=== PATIENT | male | born 1980 | race Caucasian/White ===

== ENCOUNTER 2017-02-17 17:42 | Inpatient (IN) | payer OTHER ==
[2017-02-17 20:22] VITALS: BMI 25.2
--- NOTE | 2017-02-17 22:49 | HP ---
COWS - Scale Resting Pulse: 1= [place] 81-100 Sweatin=Flushed/Facial Moisture Restless Observation: 5= Unable to Sit Still Pupil Size: 1= Pupils >than Normal Bone or Joint Aches: 4=Acute Joint/Muscle Pain Runny Nose/ Eye Tearin= Runny Nose/Eyes GI Upset > 30mins: 2= Nausea/Diarrhea Tremor Observation: 4= Gross Tremor/Twitching Yawning Observation: 1= 1-2x During Session Anxiety or Irritability: 4=Extreme Anxiety Goose Flesh Skin: 0=Smooth Skin COWS Score: 26 CIWA Score - CIWA Score Nausea/Vomitin Muscle Tremors: 4-Moderate,w/Arms Extend Anxiety: 4-Mod. Anxious/Guarded Agitation: 5 Paroxysmal Sweats: 3 Orientation: 0-Oriented Tacttile Disturbances: 3-Moderate Itch/Numb/Burn Auditory Disturbances: 0-None Visual Disturbances: 0-None Headache: 3-Moderate CIWA-Ar Total Score: 25 Admission ROS BHS - HPI Chief Complaint: COMPLAINING OF WITHDRAWAL SX'S SEEKING DETOX TXMENT Allergies/Adverse Reactions: Allergies Allergy/AdvReac Type Severity Reaction Status Date / Time No Known Allergies Allergy Verified 02/17/17 22:25 History of Present Illness: 36 Y.O. MALE WITH LONG HX/O OPIOID, BENZO AND ALCOHOL DEPENDENCE HERE FOR DETOX SERVICES. REFERRED BY SUBSTANCE ABUSE COUNSELOR. DENIES ANY SIGNIFICANT PERIOD OF CLEAN TIME. Exam Limitations: No Limitations - Ebola screening Have you traveled outside of the country in the last 21 days: No Have you had contact with anyone from an Ebola affected area: No Have you been sick,other than usual withdrawal symptoms: No Do you have a fever: No - Review of Systems Constitutional: Chills, Loss of Appetite, Night Sweats EENT: reports: Nose Congestion, Dental Problems (MISSING TEETH), Other (RUNNY NOSE/ WATERY EYES) Respiratory: reports: No Symptoms reported Cardiac: reports: No Symptoms Reported GI: reports: Nausea, Poor Appetite, Poor Fluid Intake : reports: No Symptoms Reported Musculoskeletal: reports: Back Pain, Joint Pain Integumentary: reports: Flushing Neuro: reports: Seizure (HX/O LAST 7 YEARS AGO) Endocrine: reports: No Symptoms Reported Hematology: reports: No Symptoms Reported Psychiatric: reports: Anxious, Depressed Other Systems: Reviewed and Negative Patient History - Patient Medical History Hx Anemia: No Hx Asthma: No Hx Chronic Obstructive Pulmonary Disease (COPD): No Hx Cancer: No Hx Cardiac Disorders: No Hx Congestive Heart Failure: No Hx Hypertension: Yes Hx Hypercholesterolemia: No Hx Pacemaker: No HX Cerebrovascular Accident: No Hx Seizures: Yes (NO MEDS) Hx Dementia: No Hx Diabetes: No Hx Gastrointestinal Disorders: No Hx Liver Disease: Yes (hep c +) Hx Genitourinary Disorders: No Hx Sexually Transmitted Disorders: No Hx Renal Disease (ESRD): No Hx Thyroid Disease: No Hx Human Immunodeficiency Virus (HIV): Yes Hx Hepatitis C: Yes (NO TXMENT) Hx Depression: Yes Hx Suicide Attempt: No Hx Bipolar Disorder: Yes Hx Schizophrenia: No Other Medical History: DENIES - Patient Surgical History Past Surgical History: No Hx Neurologic Surgery: No Hx Cataract Extraction: No Hx Cardiac Surgery: No Hx Lung Surgery: No Hx Breast Surgery: No Hx Breast Biopsy: No Hx Abdominal Surgery: Yes (08/03/11-s/p cholecystectomy) Hx Appendectomy: No Hx Cholecystectomy: No Hx Genitourinary Surgery: Yes (kidney stone removal) Hx Section: No Hx Orthopedic Surgery: No Hx Hysterectomy: No Anesthesia Reaction: No - PPD History Previous Implant?: Yes Documented Results: Negative w/proof Implanted On Prior R Admission?: Yes Date: 04/19/11 Results: Neg PPD to be Administered?: Yes - Smoking Cessation Smoking history: Current every day smoker Have you smoked in the past 12 months: Yes Aproximately how many cigarettes per day: 2 Cigars Per Day: 0 Hx Chewing Tobacco Use: No Initiated information on smoking cessation: Yes 'Breaking Loose' booklet given: 02/17/17 - Substance & Tx. History Hx Alcohol Use: Yes Hx Substance Use: Yes Substance Use Type: Alcohol, Heroin, Opiates (STREET MTD), Tranquilizers (XANAX) Hx Substance Use Treatment: Yes ([facility]) - Substances Abused Alcohol Route: Oral Frequency: Daily Amount used: Beer - 30 oz, Vodka 2 pint Age of first use: 16 Date of Last Use: 02/17/17 Heroin Route: Injection Frequency: Daily Amount used: 15 bags Age of first use: 16 Date of Last Use: 02/17/17 Cocaine Route: Injection Frequency: Daily Amount used: 4 bags Age of first use: 16 Date of Last Use: 02/16/17 XANAX Route: Oral Frequency: 1-2 times per week Amount used: 4MG Age of first use: 17 Date of Last Use: 02/13/[address] MTD Route: Oral Frequency: 1-3 times last 30 days Amount used: 10MG Age of first use: 29 Date of Last Use: 02/12/17 Family Disease History - Family Disease History Family Disease History: Other: Mother (HX/O SEIZURE, DM) Admission Physical Exam [facility] - Vital Signs Vital Signs: Vital Signs - 24 hr 02/17/17 20:18 Temperature 98.9 F Pulse Rate 88 Respiratory 18 Rate Blood Pressure 130/79 - Physical General Appearance: Yes: Appropriately Dressed, Moderate Distress, Alcohol on Breath, Tremorous, Anxious HEENTM: Yes: EOMI, Normocephalic, IVAN (DIALATED PUPILS), Pharynx Normal, Other (MISSING TEETH) Respiratory: Yes: Chest Non-Tender, Lungs Clear, Normal Breath Sounds, No Respiratory Distress, No Accessory Muscle Use Neck: Yes: No masses,lesions,Nodules, Supple, Trachea in good position Breast: Yes: Breast Exam Deferred Cardiology: Yes: Regular Rhythm, Regular Rate, S1, S2 Abdominal: Yes: Normal Bowel Sounds, Non Tender, Soft Genitourinary: Yes: Within Normal Limits Back: Yes: Normal Inspection Musculoskeletal: Yes: full range of Motion, Gait Steady Extremities: Yes: Normal Capillary Refill, Normal Range of Motion, Non-Tender, Tremors Neurological: Yes: Fully Oriented, Alert, Motor Strength 5/5 Integumentary: Yes: Warm, Moist, Track [place] (RECENT NEEDLE QUINTANILLA NOTED), Other (FLUSHED FACE) Lymphatic: Yes: Within Normal Limits - Diagnostic (1) Alcohol dependence with uncomplicated withdrawal Current Visit: Yes Status: Chronic (2) Opioid dependence with withdrawal Current Visit: Yes Status: Chronic (3) Sedative, hypnotic or anxiolytic dependence with withdrawal, uncomplicated Current Visit: Yes Status: Chronic (4) Nicotine dependence Current Visit: Yes Status: Chronic Qualifiers: Nicotine product type: cigarettes Substance use status: uncomplicated Qualified Code(s): F17.210 - Nicotine dependence, cigarettes, uncomplicated (5) Hx of seizure disorder Current Visit: No Status: Suspected (6) HTN (hypertension) Current Visit: Yes Status: Chronic Qualifiers: Hypertension type: unspecified Qualified Code(s): I10 - Essential (primary ) hypertension (7) Hepatitis C Current Visit: Yes Status: Chronic Qualifiers: Viral hepatitis chronicity: unspecified Cleared for Admission [facility] - Detox or Rehab [facility] Level of Care: Medically Managed Detox Regimen/Protocol: Methadone/Librium Claeared for Rehab Admission: No (DETOX) [facility] Breath Alcohol Content Breath Alcohol Content: 0.060 Urine Drug Screen - Results Drug Screen Negative: No Urine Drug Screen Results: BZO-Benzodiazepines, MTD-Methadone
[2017-02-17] MEDS ORDERED: LOPERAMIDE HCL 2 MG CAPSULE PO PRN (23:04)
[2017-02-17] MEDS ORDERED: NICOTINE POLACRILEX 2 MG GUM BC PRN (23:04)
[2017-02-17] MEDS ORDERED: guaiFENesin/D-METHORPHAN HB 10 ML UNIT-DOSE CUPS PO PRN (23:04)
[2017-02-17] MEDS ORDERED: MAGNESIUM CITRATE 300 ML BOTTLE PO PRN (23:04)
[2017-02-17] MEDS ORDERED: MAGNESIUM HYDROX 2400MG/30ML ORAL SUSPENSION 30 ML CUP PO PRN (23:04)
[2017-02-17] MEDS ORDERED: MENTHOL/PHENOL 1 EACH UD MM PRN (23:04)
[2017-02-17] MEDS ORDERED: P-EPHED 60MG/TRIPROLIDI 2.5MG TABLET PO PRN (23:04)
[2017-02-17] MEDS ORDERED: MAG HYDROX/AL HYDROX/SIMETH 30 ML UNIT-DOSE CUP PO PRN (23:04)
[2017-02-17] MEDS ORDERED: IBUPROFEN 400 MG TABLET (FP) PO PRN (23:04)
[2017-02-18] MEDS ORDERED: chlordiazePOXIDE HCL 25 MG CAPSULE PO PRN (00:01)
[2017-02-18] MEDS ORDERED: METHADONE HCL 10 MG TABLET (FOR DETOX USE ONLY) PO ONE ×4 (00:01→22:00)
[2017-02-18] MEDS ORDERED: chlordiazePOXIDE HCL 25 MG CAPSULE PO ONE (00:01)
[2017-02-18] MEDS: chlordiazePOXIDE HCL 25 MG CAPSULE PO SCH ×4 (05:46→22:09)
[2017-02-18 10:09] LABS: HEMATOCRIT 43.3 % (35.4-49); HEMOGLOBIN 14.2 GM/dL (11.7-16.9); MCHC 32.9 g/dl (32.0-35.9); MEAN CELL VOLUME 94.2 fl (80-96); MEAN PLT VOLUME 9.6 fl (7.5-11.1); PLATELET COUNT 208 K/MM3 (134-434); RDW 12.9 % (11.9-15.9); WHITE BLOOD COUNT 5.8 K/mm3 (4.0-10.0)
[2017-02-18 10:12] LABS: CHLORIDE 102 mmol/L (98-107); POTASSIUM 3.7 mmol/L (3.5-5.1); SODIUM 141 mmol/L (136-145)
--- NOTE | 2017-02-18 10:36 | PN ---
[facility] CIWA - CIWA Score Nausea/Vomitin-No Nausea/No Vomiting Muscle Tremors: 4-Moderate,w/Arms Extend Anxiety: 3 Agitation: 3 Paroxysmal Sweats: 3 Orientation: 0-Oriented Tacttile Disturbances: 0-None Auditory Disturbances: 0-None Visual Disturbances: 0-None Headache: 0-None Present CIWA-Ar Total Score: 13 BHS COWS - Scale Resting Pulse: 0= [place] 80 or Below Sweatin=Flushed/Facial Moisture Restless Observation: 1= Difficult to Sit Still Pupil Size: 0= Normal to Room Light Bone or Joint Aches: 2= Severe Diffuse Aches Runny Nose/ Eye Tearin= Runny Nose/Eyes GI Upset > 30mins: 2= Nausea/Diarrhea Tremor Observation of Outstretched Hands: 2= Slight Tremor Visible Yawning Observation: 2= >3x During Session Anxiety or Irritability: 2=Irritable/Anxious Goose Flesh Skin: 3=Piloerection COWS Score: 18 S Progress Note (SOAP) Subjective: agitation anxiety sweats shakes interrupted sleep body aches Objective: 02/18/17 10:34 Vital Signs Temperature 97.3 F L 02/18/17 09:48 Pulse Rate 79 02/18/17 09:48 Respiratory Rate 18 02/18/17 09:48 Blood Pressure 157/92 02/18/17 09:48 O2 Sat by Pulse Oximetry (%) Laboratory Tests 02/18/17 02/18/17 07:00 07:00 WBC 5.8 RBC 4.60 Hgb 14.2 Hct 43.3 MCV 94.2 MCH 31.0 MCHC 32.9 RDW 12.9 Plt Count 208 MPV 9.6 Sodium 141 Potassium 3.7 Chloride 102 labs pending aaox3 ambulating no acute distress methadone 20mg x one ordered for today instead of breaking the dose as previously ordered Assessment: 02/18/17 10:35 withdrawal sx Plan: continue detox increase fluids labs pending
[2017-02-18] MEDS: PRENATAL VITAMINS W/ FOLIC ACID TABLET (FP) PO SCH (10:49)
[2017-02-18] MEDS: NICOTINE 14 MG/24 HOURS TOPICAL PATCH TD SCH (10:52)
[2017-02-18 10:57] LABS: ALBUMIN 3.8 g/dl (3.4-5.0); ALK PHOS 109 U/L (45-117); ANION GAP 7 (8-16); BILIRUBIN,TOTAL 0.5 mg/dL (0.2-1.0); BLOOD UREA NITROGEN 17 mg/dL (7-18); CALCIUM 9.1 mg/dL (8.5-10.1); CO2 32 mmol/L (21-32); CREATININE 0.8 mg/dL (0.7-1.3); GLUCOSE,RANDOM 93 mg/dL (74-106); SGOT/AST 89 U/L (15-37); SGPT/ALT 131 U/L (12-78)
[2017-02-18] MEDS ORDERED: diphenhydrAMINE HCL 50 MG CAPSULE PO PRN (10:57)
[2017-02-18] MEDS ORDERED: FLU VACCINE QUAD 60 MCG/0.5 ML (MDV 17-18) IM ONE (12:00)
[2017-02-18] MEDS ORDERED: PNEUMOC 13-VAL CONJ-DIP CRM/PF 0.5 ML DISP.SYRIN IM ONE (12:00)
--- NOTE | 2017-02-18 12:34 | CONSULT ---
[facility] Psychiatric Consult - Data Date of interview: 02/18/17 Admission source: [facility] Identifying data: Pt. is a 36 year old male, single, unemployed, and currently homeless. This is patient's second admission to [facility]. Pt. admitted to for detox from alcohol, heroin, cocaine and xanax dependence. Substance Abuse History: Smoking Cessation. Smoking history: Current every day smoker. Have you smoked in the past 12 months: Yes. Aproximately how many cigarettes per day: 2. Cigars Per Day: 0. Hx Chewing Tobacco Use: No. Initiated information on smoking cessation: Yes. 'Breaking Loose' booklet given : 02/17/17. - Substance & Tx. History. Hx Alcohol Use: Yes. Hx Substance Use : Yes. Substance Use Type: Alcohol, Heroin, Opiates (STREET MTD), Tranquilizers (XANAX). Hx Substance Use Treatment: Yes ([facility]). Alcohol: Route: Oral Frequency: Daily. Amount used: Beer - 30 oz, Vodka 2 pint Age of first use: 16. Date of Last Use: 02/17/17. Heroin: Route: Injection Frequency: Daily. Amount used: 15 bags Age of first use: 16. Date of Last Use : 02/17/17. Cocaine: Route: Injection Frequency: Daily. Amount used: 4 bags Age of first use: 16. Date of Last Use: 02/16/17. XANAX: Route: Oral Frequency: 1-2 times per week. Amount used: 4MG Age of first use: 17. Date of Last Use: 02/13/17. STREET MTD: Route: Oral Frequency: 1-3 times last 30 days. Amount used: 10MG Age of first use: 29. Date of Last Use: 02/12/17 Medical History: Cholecystectomy, HEP C, Seizures, HIV and kidney stone removal. Psychiatric History: Pt. reports a history of depression and anxiety. Pt. denies h/o psychiatric hospitalization and suicide attempts. Physical/Sexual Abuse/Trauma History: Denies. Mental Status Exam - Mental Status Exam Alert and Oriented to: Time, Place, Person Cognitive Function: Fair Patient Appearance: Unkempt Mood: Depressed, Anxious Affect: Mood Congruent Patient Behavior: Cooperative Speech Pattern: Clear Voice Loudness: Normal Thought Process: Intact Thought Disorder: Not Present Hallucinations: Denies Suicidal Ideation: Denies Homicidal Ideation: Denies Insight/Judgement: Poor Sleep: Poorly Appetite: Fair Muscle strength/Tone: Normal Gait/Station: Normal Psychiatric Findings - Problem List (Velva 1, 2,3) (1) Alcohol dependence with uncomplicated withdrawal Current Visit: Yes Status: Chronic (2) Opioid dependence with withdrawal Current Visit: Yes Status: Chronic (3) Sedative, hypnotic or anxiolytic dependence with withdrawal, uncomplicated Current Visit: Yes Status: Chronic (4) Alcohol dependence Current Visit: Yes Status: Acute (5) Benzodiazepine dependence Current Visit: Yes Status: Acute (6) Nicotine dependence Current Visit: Yes Status: Chronic Qualifiers: Nicotine product type: cigarettes Substance use status: uncomplicated Qualified Code(s): F17.210 - Nicotine dependence, cigarettes, uncomplicated (7) Substance induced mood disorder Current Visit: No Status: Suspected - Initial Treatment Plan Initial Treatment Plan: Psycoeducation provided. Detox in progress. Seroquel 25mg qhs for anxiety/irritability.Benefits and side effects discussed with patient. Verbal consent given. Patient agreeable with plan.
[2017-02-18 13:28] LABS: URINE APPEARANCE CLEAR; URINE BILIRUBIN NEGATIVE (NEGATIVE); URINE BLOOD NEGATIVE (NEGATIVE); URINE COLOR STRAW; URINE GLUCOSE (UA) NEGATIVE (NEGATIVE); URINE KETONE NEGATIVE (NEGATIVE); URINE LEUK ESTERASE NEGATIVE (NEGATIVE); URINE NITRITE NEGATIVE (NEGATIVE); URINE PROTEIN NEGATIVE (NEGATIVE); URINE UROBILINOGEN NEGATIVE mg/dL (0.2-1.0)
--- NOTE | 2017-02-18 14:21 | EKG ---
Test Reason : Blood Pressure : / mmHG Vent. Rate : 075 BPM Atrial Rate : 075 BPM P-R Int : 170 ms QRS Dur : 100 ms QT Int : 444 ms P-R-T Axes : 055 049 078 degrees QTc Int : 495 ms NORMAL SINUS RHYTHM NONSPECIFIC ST ABNORMALITY PROLONGED QT ABNORMAL ECG NO PREVIOUS ECGS AVAILABLE Confirmed by HECTOR BREAUX MD ([id number]) on 02/18/2017 2:20:43 PM Referred By: Confirmed By:HECTOR BREAUX MD
[2017-02-18] MEDS: THIAMINE HCL 100 MG TABLET (FP) PO SCH (22:09)
[2017-02-18] MEDS: QUEtiapine FUMARATE 25 MG TABLET (FP) PO SCH (22:09)
[2017-02-19] MEDS: chlordiazePOXIDE HCL 25 MG CAPSULE PO SCH ×4 (05:57→22:19)
[2017-02-19] MEDS ORDERED: METHADONE HCL 5 MG TABLET (FOR DETOX USE ONLY) PO SCH (10:00)
[2017-02-19] MEDS: PRENATAL VITAMINS W/ FOLIC ACID TABLET (FP) PO SCH (10:25)
[2017-02-19] MEDS: NICOTINE 14 MG/24 HOURS TOPICAL PATCH TD SCH (10:26)
[2017-02-19] MEDS: ACETAMINOPHEN 325 MG TABLET (FP) PO PRN ×2 (10:27→17:56)
--- NOTE | 2017-02-19 10:27 | PN ---
S CIWA - CIWA Score Nausea/Vomitin Muscle Tremors: 2 Anxiety: 2 Agitation: 2 Paroxysmal Sweats: 3 Orientation: 1-Uncertain about Date Tacttile Disturbances: 2-Mild Itch/Numbness/Burn Auditory Disturbances: 0-None Visual Disturbances: 0-None Headache: 0-None Present CIWA-Ar Total Score: 14 BHS COWS - Scale Resting Pulse: 1= [place] 81-100 Sweatin=Flushed/Facial Moisture Restless Observation: 1= Difficult to Sit Still Pupil Size: 1= Pupils >than Normal Bone or Joint Aches: 2= Severe Diffuse Aches Runny Nose/ Eye Tearin= Nasal Congestion GI Upset > 30mins: 2= Nausea/Diarrhea Tremor Observation of Outstretched Hands: 2= Slight Tremor Visible Yawning Observation: 1= 1-2x During Session Anxiety or Irritability: 2=Irritable/Anxious Goose Flesh Skin: 0=Smooth Skin COWS Score: 15 BHS Progress Note (SOAP) Subjective: interrupted sleep, sweats, shakes, lbp , decreased appetite Objective: 02/19/17 10:25 Vital Signs Temperature 98.2 F 02/19/17 09:47 Pulse Rate 74 02/19/17 09:47 Respiratory Rate 18 02/19/17 09:47 Blood Pressure 160/97 02/19/17 09:47 O2 Sat by Pulse Oximetry (%) Laboratory Tests 02/17/17 02/17/17 02/18/17 07:00 11:40 07:00 WBC RBC Hgb Hct MCV MCH MCHC RDW Plt Count MPV Sodium Potassium Chloride Carbon Dioxide Anion Gap BUN Creatinine Creat Clearance w eGFR Random Glucose Calcium Total Bilirubin AST ALT Alkaline Phosphatase Total Protein Albumin Urine Color Straw Urine Appearance Clear Urine pH 5.0 Ur Specific [place] 1.002 Urine Protein Negative Urine Glucose (UA) Negative Urine Ketones Negative Urine Blood Negative Urine Nitrite Negative Urine Bilirubin Negative Urine Urobilinogen Negative Ur Leukocyte Esterase Negative RPR Titer Hepatitis C Antibody >11.0 H HIV 1&2 Antibody Screen Negative HIV P24 Antigen Negative 02/18/17 02/18/17 02/18/17 07:00 07:00 07:00 WBC 5.8 RBC 4.60 Hgb 14.2 Hct 43.3 MCV 94.2 MCH 31.0 MCHC 32.9 RDW 12.9 Plt Count 208 MPV 9.6 Sodium 141 Potassium 3.7 Chloride 102 Carbon Dioxide 32 Anion Gap 7 L BUN 17 D Creatinine 0.8 D Creat Clearance w eGFR > 60 Random Glucose 93 Calcium 9.1 Total Bilirubin 0.5 D AST 89 H D ALT 131 H D Alkaline Phosphatase 109 Total Protein 8.0 Albumin 3.8 Urine Color Urine Appearance Urine pH Ur Specific [place] Urine Protein Urine Glucose (UA) Urine Ketones Urine Blood Urine Nitrite Urine Bilirubin Urine Urobilinogen Ur Leukocyte Esterase RPR Titer Nonreactive Hepatitis C Antibody HIV 1&2 Antibody Screen HIV P24 Antigen pt aox3 lying in bed , irritable , irritable Assessment: 02/19/17 10:27 withdrawal sx's lbp tinactin bid 02/19/17 10:29 Plan: cont. detox increase fluids flexeril 10mg tid tinactin bid
[2017-02-19] MEDS ORDERED: CYCLOBENZAPRINE HCL 10 MG TABLET (FP) PO PRN (10:31)
[2017-02-19] MEDS: hydrOXYzine PAMOATE 50 MG CAPSULE (FP) PO PRN (13:18)
[2017-02-19] MEDS: THIAMINE HCL 100 MG TABLET (FP) PO SCH (22:19)
[2017-02-19] MEDS: QUEtiapine FUMARATE 25 MG TABLET (FP) PO SCH (22:19)
[2017-02-19] MEDS: TOLNAFTATE 1% CREAM 15 GM TUBE TP SCH (22:22)
[2017-02-20] MEDS: chlordiazePOXIDE 5 MG CAPSULE PO SCH ×4 (05:07→22:06)
[2017-02-20] MEDS ORDERED: cloNIDine HCL 0.1 MG TABLET PO ONE (07:08)
--- NOTE | 2017-02-20 09:26 | PN ---
BHS Progress Note (SOAP) Subjective: nausea, sweats, interrupted sleep, anxiety, tremors Objective: 02/20/17 09:25 Vital Signs - 24 hr 02/19/17 02/19/17 02/19/17 09:47 13:31 17:27 Temperature 98.2 F 97.7 F 97.7 F Pulse Rate 74 81 70 Respiratory 18 18 18 Rate Blood Pressure 160/97 160/92 155/96 02/19/17 02/20/17 02/20/17 22:05 03:30 06:20 Temperature 98.1 F 97.0 F L Pulse Rate 70 87 Respiratory 18 18 18 Rate Blood Pressure 157/103 163/92 Laboratory Tests 02/17/17 02/17/17 02/18/17 07:00 11:40 07:00 WBC RBC Hgb Hct MCV MCH MCHC RDW Plt Count MPV Sodium Potassium Chloride Carbon Dioxide Anion Gap BUN Creatinine Creat Clearance w eGFR Random Glucose Calcium Total Bilirubin AST ALT Alkaline Phosphatase Total Protein Albumin Urine Color Straw Urine Appearance Clear Urine pH 5.0 Ur Specific [place] 1.002 Urine Protein Negative Urine Glucose (UA) Negative Urine Ketones Negative Urine Blood Negative Urine Nitrite Negative Urine Bilirubin Negative Urine Urobilinogen Negative Ur Leukocyte Esterase Negative RPR Titer Hepatitis C Antibody >11.0 H HIV 1&2 Antibody Screen Negative HIV P24 Antigen Negative 02/18/17 02/18/17 02/18/17 07:00 07:00 07:00 WBC 5.8 RBC 4.60 Hgb 14.2 Hct 43.3 MCV 94.2 MCH 31.0 MCHC 32.9 RDW 12.9 Plt Count 208 MPV 9.6 Sodium 141 Potassium 3.7 Chloride 102 Carbon Dioxide 32 Anion Gap 7 L BUN 17 D Creatinine 0.8 D Creat Clearance w eGFR > 60 Random Glucose 93 Calcium 9.1 Total Bilirubin 0.5 D AST 89 H D ALT 131 H D Alkaline Phosphatase 109 Total Protein 8.0 Albumin 3.8 Urine Color Urine Appearance Urine pH Ur Specific [place] Urine Protein Urine Glucose (UA) Urine Ketones Urine Blood Urine Nitrite Urine Bilirubin Urine Urobilinogen Ur Leukocyte Esterase RPR Titer Nonreactive Hepatitis C Antibody HIV 1&2 Antibody Screen HIV P24 Antigen Assessment: 02/20/17 09:26 withdrawawl sx, hypertensive, elevated lfts, cont detox, fluids, control bp
[2017-02-20] MEDS: METHADONE HCL 5 MG TABLET (FOR DETOX USE ONLY) PO SCH (10:18)
[2017-02-20] MEDS: cloNIDine HCL 0.1 MG TABLET PO SCH ×2 (10:18→22:05)
[2017-02-20] MEDS: PANTOPRAZOLE 40 MG TABLET (FP) PO SCH (10:19)
[2017-02-20] MEDS: TOLNAFTATE 1% CREAM 15 GM TUBE TP SCH ×2 (10:19→22:09)
[2017-02-20] MEDS: NAPROXEN 500 MG TABLET (FP) PO SCH ×2 (10:19→22:11)
[2017-02-20] MEDS: PRENATAL VITAMINS W/ FOLIC ACID TABLET (FP) PO SCH (10:19)
[2017-02-20] MEDS: NICOTINE 14 MG/24 HOURS TOPICAL PATCH TD SCH (10:20)
[2017-02-20] MEDS ORDERED: chlordiazePOXIDE HCL 25 MG CAPSULE PO ONE (13:00)
[2017-02-20] MEDS: CYCLOBENZAPRINE HCL 10 MG TABLET (FP) PO SCH ×2 (13:46→22:05)
[2017-02-20] MEDS: GABAPENTIN 100 MG CAPSULE (FP) PO SCH ×2 (13:46→22:09)
[2017-02-20] MEDS ORDERED: ZOLPIDEM TARTRATE 10 MG TABLET (PARK CARE ONLY) PO PRN (22:00)
[2017-02-20] MEDS: QUEtiapine FUMARATE 25 MG TABLET (FP) PO SCH (22:05)
[2017-02-20] MEDS: THIAMINE HCL 100 MG TABLET (FP) PO SCH (22:09)
[2017-02-21] MEDS: hydrOXYzine PAMOATE 50 MG CAPSULE (FP) PO PRN (02:59)
[2017-02-21] MEDS: CYCLOBENZAPRINE HCL 10 MG TABLET (FP) PO SCH (05:13)
[2017-02-21] MEDS: chlordiazePOXIDE HCL 10 MG CAPSULE PO SCH ×2 (05:13→10:12)
[2017-02-21] MEDS: GABAPENTIN 100 MG CAPSULE (FP) PO SCH (05:13)
--- NOTE | 2017-02-21 09:57 | PN ---
S Progress Note (SOAP) Subjective: alert,irritable,anxious,interrupted sleep Vital Signs Temperature 97.9 F 02/21/17 06:53 Pulse Rate 63 02/21/17 06:53 Respiratory Rate 18 02/21/17 06:53 Blood Pressure 147/79 02/21/17 06:53 O2 Sat by Pulse Oximetry (%) Objective: 02/21/17 09:56 Vital Signs Temperature 97.9 F 02/21/17 06:53 Pulse Rate 63 02/21/17 06:53 Respiratory Rate 18 02/21/17 06:53 Blood Pressure 147/79 02/21/17 06:53 O2 Sat by Pulse Oximetry (%) Assessment: 02/21/17 09:55 withdrawal symptom Plan: continue detox,discharge in am
[2017-02-21 10:04] VITALS: BP 139/92; PULSE 75; TEMP 97.5
[2017-02-21] MEDS: METHADONE HCL 5 MG TABLET (FOR DETOX USE ONLY) PO SCH (10:12)
[2017-02-21] MEDS: PRENATAL VITAMINS W/ FOLIC ACID TABLET (FP) PO SCH (10:12)
[2017-02-21] MEDS: NAPROXEN 500 MG TABLET (FP) PO SCH (10:12)
[2017-02-21] MEDS: cloNIDine HCL 0.1 MG TABLET PO SCH (10:12)
[2017-02-21] MEDS: PANTOPRAZOLE 40 MG TABLET (FP) PO SCH (10:13)
[2017-02-21] MEDS: TOLNAFTATE 1% CREAM 15 GM TUBE TP SCH (10:13)
[2017-02-21] MEDS: NICOTINE 14 MG/24 HOURS TOPICAL PATCH TD SCH (10:16)
--- NOTE | 2017-02-21 10:30 | PN ---
BHS Progress Note Note: patient did not want to complete treatment signed release ama
--- NOTE | 2017-02-21 10:34 | DS ---
[facility] Detox Discharge Summary Admission Date: 02/17/17 Discharge Date: 02/21/17 - History Present History: Alcohol Dependence, Opioid Dependence, Sedative Dependence Additional Comments: patient did not want to complete treatment,signed release ama,seen by counselor Pertinent Past History: hepatitis c hypertension seizure disorder nicotine dependence - Physical Exam Results Vital Signs: Vital Signs Temperature 97.5 F L 02/21/17 10:03 Pulse Rate 75 02/21/17 10:03 Respiratory Rate 18 02/21/17 10:03 Blood Pressure 139/92 02/21/17 10:03 O2 Sat by Pulse Oximetry (%) Pertinent Admission Physical Exam Findings: withdrawal symptom - Treatment Patient has Accepted a Rehab Referral to: declined - Medication Discharge Medications: Ambulatory Orders NK [No Known Home Medication] 06/13/13 - Diagnosis (1) Alcohol dependence with uncomplicated withdrawal Current Visit: Yes Status: Chronic (2) HTN (hypertension) Current Visit: Yes Status: Chronic Qualifiers: Hypertension type: unspecified Qualified Code(s): I10 - Essential (primary ) hypertension (3) Hepatitis C Current Visit: Yes Status: Chronic Qualifiers: Viral hepatitis chronicity: unspecified (4) Nicotine dependence Current Visit: Yes Status: Chronic Qualifiers: Nicotine product type: cigarettes Substance use status: uncomplicated Qualified Code(s): F17.210 - Nicotine dependence, cigarettes, uncomplicated (5) Opioid dependence with withdrawal Current Visit: Yes Status: Chronic (6) Sedative, hypnotic or anxiolytic dependence with withdrawal, uncomplicated Current Visit: Yes Status: Chronic (7) Hx of seizure disorder Current Visit: No Status: Suspected - AMA Did Patient Leave Against Medical Advice: Yes
[2017-02-22] MEDS ORDERED: METHADONE HCL 10 MG TABLET (FOR DETOX USE ONLY) PO SCH (10:00)
[2017-02-23] MEDS ORDERED: METHADONE HCL 10 MG TABLET (FOR DETOX USE ONLY) PO SCH (06:00)
== END 2017-02-21 10:53 | disposition home or self-care (01) | DRG 773 ==
LOC: YASAS 17:42 → Y6N 23:06
PROVIDERS: ADMIT Internal Medicine; ATTEND Internal Medicine
PROC: HZ2ZZZZ Detoxification Services for Substance Abuse Treatment (ICD-10-PCS; principal; 2017-02-17)
DX: F11.23 Opioid dependence with withdrawal (principal); F13.230 Sedative, hypnotic or anxiolytic dependence with withdrawal, uncomplicated; F10.230 Alcohol dependence with withdrawal, uncomplicated; F17.210 Nicotine dependence, cigarettes, uncomplicated; F19.24 Other psychoactive substance dependence with psychoactive substance-induced mood disorder; F31.9 Bipolar disorder, unspecified; I10 Essential (primary) hypertension; B18.2 Chronic viral hepatitis C; Z86.69 Personal history of other diseases of the nervous system and sense organs
CPT/HCPCS: 36415; 80053; 81003; 85027; 86593; 86803; 87389; 87522; 90670; 90688; 93005; 93010; G0008; G0009

== ENCOUNTER 2017-07-26 11:24 | Inpatient (IN) | payer OTHER ==
[2017-07-26 15:32] VITALS: BMI 25.8
--- NOTE | 2017-07-26 20:54 | HP ---
COWS - Scale Resting Pulse: 0= ID 80 or Below Sweatin=Flushed/Facial Moisture Restless Observation: 1= Difficult to Sit Still Pupil Size: 1= Pupils >than Normal Bone or Joint Aches: 2= Severe Diffuse Aches Runny Nose/ Eye Tearin= Runny Nose/Eyes GI Upset > 30mins: 2= Nausea/Diarrhea Tremor Observation: 2= Slight Tremor Visible Yawning Observation: 1= 1-2x During Session Anxiety or Irritability: 1=Feels Anxious/Irritable Goose Flesh Skin: 0=Smooth Skin COWS Score: 14 CIWA Score - CIWA Score Nausea/Vomitin Muscle Tremors: 3 Anxiety: 3 Agitation: 2 Paroxysmal Sweats: 3 Orientation: 0-Oriented Tacttile Disturbances: 2-Mild Itch/Numbness/Burn Auditory Disturbances: 2-Mild Harshness/Frighten Visual Disturbances: 2-Mild Sensitivity Headache: 2-Mild CIWA-Ar Total Score: 22 Admission ROS BHS - HPI Chief Complaint: DEPENDENT ON HEROIN, COCAINE AND ETOH Allergies/Adverse Reactions: Allergies Allergy/AdvReac Type Severity Reaction Status Date / Time No Known Allergies Allergy Verified 07/26/17 18:50 History of Present Illness: THE PT. IS REQUESTING ADMISSION TO THE DETOX UNIT AND CAME FOR MEDICAL CLEARANCE. Exam Limitations: No Limitations - Ebola screening Have you traveled outside of the country in the last 21 days: No (N) Have you had contact with anyone from an Ebola affected area: No Have you been sick,other than usual withdrawal symptoms: No Do you have a fever: No - Review of Systems Constitutional: See HPI, Loss of Appetite, Malaise, Weakness EENT: reports: See HPI, Nose Congestion Respiratory: reports: See HPI Cardiac: reports: See HPI GI: reports: See HPI, Nausea, Poor Appetite, Abdominal cramping : reports: No Symptoms Reported, See HPI Musculoskeletal: reports: See HPI, Muscle Pain, Muscle Weakness Integumentary: reports: See HPI, Flushing, Sweating Neuro: reports: See HPI, Headache, Tremors, Weakness Endocrine: reports: See HPI Hematology: reports: See HPI Psychiatric: reports: Judgement Intact, Orientated x3, Anxious, Depressed Patient History - Patient Medical History Hx Anemia: No Hx Asthma: No Hx Chronic Obstructive Pulmonary Disease (COPD): No Hx Cancer: No Hx Cardiac Disorders: No Hx Congestive Heart Failure: No Hx Hypertension: Yes (B/P=139/100) Hx Hypercholesterolemia: No Hx Pacemaker: No HX Cerebrovascular Accident: No Hx Seizures: Yes (WITHDRAWAL SEIZURES - LAST EPISODE WAS 10 yrs ago) Hx Dementia: No Hx Diabetes: No Hx Gastrointestinal Disorders: No Hx Liver Disease: Yes (hep c +) Hx Genitourinary Disorders: No Hx Sexually Transmitted Disorders: No Hx Renal Disease (ESRD): No Hx Thyroid Disease: No Hx Human Immunodeficiency Virus (HIV): No Hx Hepatitis C: Yes (NO TXMENT) Hx Suicide Attempt: No Hx Bipolar Disorder: Yes (AND ANXIETY DISORDER) Hx Schizophrenia: No - Patient Surgical History Past Surgical History: Yes Hx Neurologic Surgery: No Hx Cataract Extraction: No Hx Cardiac Surgery: No Hx Lung Surgery: No Hx Breast Surgery: No Hx Breast Biopsy: No Hx Abdominal Surgery: Yes (08/03/11-s/p cholecystectomy) Hx Appendectomy: No Hx Cholecystectomy: No Hx Genitourinary Surgery: Yes (kidney stone removal) Hx Section: No Hx Orthopedic Surgery: No Hx Hysterectomy: No Anesthesia Reaction: No - PPD History Previous Implant?: Yes Documented Results: Negative w/proof Implanted On Prior R Admission?: Yes Date: 02/20/17 Results: 0 mm - Smoking Cessation Smoking history: Current every day smoker Have you smoked in the past 12 months: Yes Aproximately how many cigarettes per day: 20 Cigars Per Day: 0 Hx Chewing Tobacco Use: No Initiated information on smoking cessation: Yes 'Breaking Loose' booklet given: 07/26/17 - Substance & Tx. History Hx Alcohol Use: Yes Hx Substance Use: Yes Substance Use Type: Alcohol, Heroin Hx Substance Use Treatment: Yes - Substances Abused Alcohol Route: Oral Frequency: Daily Amount used: beer 30 of 16 oz, vodka 2 pints Age of first use: 14 Date of Last Use: 07/26/17 Heroin Route: Injection Frequency: Daily Amount used: 1 bundle Age of first use: 16 Date of Last Use: 07/25/17 Cocaine Route: Inhalation Frequency: Daily Amount used: $150/D Age of first use: 16 Date of Last Use: 07/25/17 Family Disease History - Family Disease History Family Disease History: Other: Grandparent (GF WAS ETOH DEPENDENT AND ), Mother (HX/O SEIZURE, DM) Admission Physical Exam BHS - Vital Signs Vital Signs: Vital Signs - 24 hr 07/26/17 15:28 Temperature 97 F L Pulse Rate 73 Respiratory 18 Rate Blood Pressure 139/100 - Physical General Appearance: Yes: No Apparent Distress, Nourished, Appropriately Dressed , Alcohol on Breath, Tremorous, Sweating, Anxious HEENTM: Yes: Hearing grossly Normal, Normocephalic, Normal Voice, IVAN, Pharynx Normal Respiratory: Yes: Chest Non-Tender, Lungs Clear, Normal Breath Sounds, No Respiratory Distress, No Accessory Muscle Use Neck: Yes: No masses,lesions,Nodules, Supple, Trachea in good position Breast: Yes: Axillae without masses, No masses Cardiology: Yes: Regular Rhythm, Regular Rate, S1, S2 Abdominal: Yes: Normal Bowel Sounds, Non Tender, Protuberent Back: Yes: Normal Inspection Musculoskeletal: Yes: full range of Motion, Gait Steady, Pelvis Stable, Muscle Pain, Muscle weakness Extremities: Yes: Normal Capillary Refill, Normal Range of Motion, Non-Tender, Tremors Neurological: Yes: tubing mill setter II-XII NML intact, Fully Oriented, Alert, Motor Strength 5/5, Normal Response, Depressed Affect Integumentary: Yes: Warm, Moist, Track [place] Lymphatic: Yes: Within Normal Limits - Diagnostic (1) Bipolar disorder Current Visit: Yes Status: Chronic Qualifiers: Active/Remission status: currently active Current episode severity: moderate (2) Anxiety disorder Current Visit: Yes Status: Chronic Qualifiers: Anxiety disorder type: generalized anxiety disorder Qualified Code(s): F41.1 - Generalized anxiety disorder (3) Cocaine dependence Current Visit: Yes Status: Chronic Qualifiers: Substance use status: uncomplicated Qualified Code(s): F14.20 - Cocaine dependence, uncomplicated (4) Alcohol dependence with uncomplicated withdrawal Current Visit: No Status: Chronic (5) HTN (hypertension) Current Visit: No Status: Chronic Qualifiers: Hypertension type: unspecified Qualified Code(s): I10 - Essential (primary ) hypertension (6) Hepatitis C Current Visit: No Status: Chronic Qualifiers: Viral hepatitis chronicity: unspecified (7) Nicotine dependence Current Visit: No Status: Chronic Qualifiers: Nicotine product type: cigarettes Substance use status: uncomplicated Qualified Code(s): F17.210 - Nicotine dependence, cigarettes, uncomplicated (8) Opioid dependence with withdrawal Current Visit: No Status: Chronic Cleared for Admission [facility] - Detox or Rehab [facility] Level of Care: Medically Managed Detox Regimen/Protocol: Methadone/Valium [facility] Breath Alcohol Content Breath Alcohol Content: 0.155 Urine Drug Screen - Results Drug Screen Negative: No Urine Drug Screen Results: DOUG-Cocaine, OPI-Opiates, BZO-Benzodiazepines, MTD- Methadone
[2017-07-26] MEDS ORDERED: MAGNESIUM CITRATE 300 ML BOTTLE PO PRN (21:05)
[2017-07-26] MEDS ORDERED: METHADONE HCL 10 MG TABLET (FOR DETOX USE ONLY) PO ONE ×2 (21:05→23:00)
[2017-07-26] MEDS ORDERED: MAGNESIUM HYDROX 2400MG/30ML ORAL SUSPENSION 30 ML CUP PO PRN (21:05)
[2017-07-26] MEDS ORDERED: NICOTINE POLACRILEX 4 MG GUM BC PRN (21:05)
[2017-07-26] MEDS ORDERED: MENTHOL/PHENOL 1 EACH UD MM PRN (21:05)
[2017-07-26] MEDS ORDERED: diazePAM 5 MG TABLET PO PRN (21:05)
[2017-07-26] MEDS ORDERED: IBUPROFEN 400 MG TABLET (FP) PO PRN (21:05)
[2017-07-26] MEDS ORDERED: diazePAM 5 MG TABLET PO ONE (21:05)
[2017-07-26] MEDS ORDERED: guaiFENesin/D-METHORPHAN HB 10 ML UNIT-DOSE CUPS PO PRN (21:05)
[2017-07-26] MEDS ORDERED: LOPERAMIDE HCL 2 MG CAPSULE PO PRN (21:05)
[2017-07-26] MEDS ORDERED: ACETAMINOPHEN 325 MG TABLET (FP) PO PRN (21:05)
[2017-07-26] MEDS ORDERED: hydrOXYzine PAMOATE 25 MG CAPSULE (FP) PO PRN (21:05)
[2017-07-26] MEDS ORDERED: MAG HYDROX/AL HYDROX/SIMETH 30 ML UNIT-DOSE CUP PO PRN (21:05)
[2017-07-26] MEDS ORDERED: P-EPHED 60MG/TRIPROLIDI 2.5MG TABLET PO PRN (21:05)
[2017-07-26] MEDS ORDERED: MELATONIN 5 MG TABLETS PO PRN (22:00)
[2017-07-26] MEDS: THIAMINE HCL 100 MG TABLET (FP) PO SCH (22:15)
[2017-07-26] MEDS: diazePAM 5 MG TABLET PO SCH (22:16)
[2017-07-27] MEDS: diazePAM 5 MG TABLET PO SCH (05:37)
--- NOTE | 2017-07-27 09:02 | PN ---
[facility] Progress Note Note: pt states that he is part of a [facility] and failed to say he belongs there at time of admission to detox. Pt is aware that he will only receive 20mg of methadone today and will wait for verification for 100mg of methadone tomorrow.
[2017-07-27] MEDS ORDERED: METHADONE HCL 10 MG TABLET (FOR DETOX USE ONLY) PO SCH (10:00)
[2017-07-27] MEDS: PRENATAL VITAMINS W/ FOLIC ACID TABLET (FP) PO SCH (10:25)
[2017-07-27] MEDS: NICOTINE 21 MG/24 HOURS TOPICAL PATCH TD SCH (10:26)
[2017-07-27 10:34] LABS: HEMATOCRIT 39.5 % (35.4-49); MCH 30.3 pg (25.7-33.7); MEAN PLT VOLUME 10.1 fl (7.5-11.1); PLATELET COUNT 155 K/MM3 (134-434); RBC 4.29 M/mm3 (4.00-5.60); RDW 15.1 % (11.9-15.9)
[2017-07-27 10:43] LABS: CHLORIDE 102 mmol/L (98-107); POTASSIUM 3.9 mmol/L (3.5-5.1); SODIUM 140 mmol/L (136-145)
[2017-07-27 10:56] LABS: ALBUMIN 3.8 g/dl (3.4-5.0); ALK PHOS 127 U/L (45-117); ANION GAP 7 (8-16); BILIRUBIN,TOTAL 0.7 mg/dL (0.2-1.0); BLOOD UREA NITROGEN 12 mg/dL (7-18); CALCIUM 9.1 mg/dL (8.5-10.1); CO2 31 mmol/L (21-32); CREATININE 0.6 mg/dL (0.7-1.3); GLUCOSE,RANDOM 91 mg/dL (74-106); SGOT/AST 64 U/L (15-37); SGPT/ALT 83 U/L (12-78); TOT PROT 7.8 g/dl (6.4-8.2)
[2017-07-27 10:57] LABS: URINE APPEARANCE CLEAR; URINE BILIRUBIN NEGATIVE (<2.0 mg/dL); URINE COLOR STRAW; URINE GLUCOSE (UA) NEGATIVE (NEGATIVE); URINE KETONE NEGATIVE (NEGATIVE); URINE LEUK ESTERASE NEGATIVE (NEGATIVE); URINE NITRITE NEGATIVE (NEGATIVE); URINE PROTEIN NEGATIVE (NEGATIVE); URINE UROBILINOGEN NEGATIVE mg/dL (0.2-1.0)
[2017-07-27] MEDS ORDERED: chlordiazePOXIDE HCL 25 MG CAPSULE PO PRN (11:52)
--- NOTE | 2017-07-27 11:52 | PN ---
S CIWA - CIWA Score Nausea/Vomitin-No Nausea/No Vomiting Muscle Tremors: 4-Moderate,w/Arms Extend Anxiety: 3 Agitation: 3 Paroxysmal Sweats: 3 Orientation: 0-Oriented Tacttile Disturbances: 0-None Auditory Disturbances: 0-None Visual Disturbances: 0-None Headache: 0-None Present CIWA-Ar Total Score: 13 BHS COWS - Scale Resting Pulse: 0= SC 80 or Below Sweatin=Flushed/Facial Moisture Restless Observation: 1= Difficult to Sit Still Pupil Size: 0= Normal to Room Light Bone or Joint Aches: 2= Severe Diffuse Aches Runny Nose/ Eye Tearin= Runny Nose/Eyes GI Upset > 30mins: 1= Stomach Cramp Tremor Observation of Outstretched Hands: 2= Slight Tremor Visible Yawning Observation: 2= >3x During Session Anxiety or Irritability: 2=Irritable/Anxious Goose Flesh Skin: 0=Smooth Skin COWS Score: 14 S Progress Note (SOAP) Subjective: sweats shakes interrupted sleep agitation I need my methadone I belong to [facility]. I forgot to tell someone downstairs about it. Objective: 07/27/17 11:48 Vital Signs Temperature 97.9 F 07/27/17 10:21 Pulse Rate 75 07/27/17 10:30 Respiratory Rate 18 07/27/17 10:30 Blood Pressure 151/105 07/27/17 10:21 O2 Sat by Pulse Oximetry (%) Laboratory Tests 07/27/17 07/27/17 07/27/17 08:00 08:00 09:20 WBC 4.0 D RBC 4.29 Hgb 13.0 Hct 39.5 MCV 92.0 MCH 30.3 MCHC 33.0 RDW 15.1 D Plt Count 155 D MPV 10.1 Sodium 140 Potassium 3.9 Chloride 102 Carbon Dioxide 31 Anion Gap 7 L BUN 12 D Creatinine 0.6 L D Creat Clearance w eGFR > 60 Random Glucose 91 Calcium 9.1 Total Bilirubin 0.7 D AST 64 H D ALT 83 H D Alkaline Phosphatase 127 H Total Protein 7.8 Albumin 3.8 Urine Color Straw Urine Appearance Clear Urine pH 6.0 Ur Specific [place] 1.003 Urine Protein Negative Urine Glucose (UA) Negative Urine Ketones Negative Urine Blood Negative Urine Nitrite Negative Urine Bilirubin Negative Urine Urobilinogen Negative Ur Leukocyte Esterase Negative aaox3 ambulating no acute distress Assessment: 07/27/17 11:49 withdrawal sx Plan: continue detox d/c methadone regimen and continue with librium detox. verify his methadone from program tomorrow. increase fluids
--- NOTE | 2017-07-27 13:45 | CONSULT ---
[facility] Psychiatric Consult - Data Date of interview: 07/27/17 Admission source: Self-referred Identifying data: Patient is a 36 y/o male single, unemployed, homeless Substance Abuse History: Admitted to the unit due to a history of polysubstace use: ETOH, Heroin, Cocaine. Drink Beers and Vodka. Numerous prior Detox in patient treatment. Smokes one pack of cigarettes a day. Past history of ETOH witdrawl seizure. Please refer to addiction counselor note for more detailed background and drug history Medical History: Medical history is significant for HTN. History of cholecistectomy in 2011. Kidney stone removal Psychiatric History: C.o anxiety episodes, subtance abuse induced mood disorder. No prior psychiatric hospitalization. Medciated with Seroquel during his in patient Detox admission, non compliant with continuity of care Physical/Sexual Abuse/Trauma History: Patient denies past history of abuse Additional Comment: No prior trouble with the law Mental Status Exam - Mental Status Exam Alert and Oriented to: Place, Person Cognitive Function: Good Patient Appearance: Unkempt Mood: Depressed, Anxious Affect: Appropriate Patient Behavior: Cooperative Speech Pattern: Clear Voice Loudness: Normal Thought Process: Intact Thought Disorder: Not Present Hallucinations: None Suicidal Ideation: None Homicidal Ideation: None Insight/Judgement: Poor Sleep: Poorly Appetite: Fair Muscle strength/Tone: Normal Gait/Station: Normal (none) Psychiatric Findings - Problem List ([place] 1, 2,3) (1) Anxiety disorder Current Visit: Yes Status: Chronic Qualifiers: Anxiety disorder type: generalized anxiety disorder Qualified Code(s): F41.1 - Generalized anxiety disorder (2) Bipolar disorder Current Visit: Yes Status: Chronic Qualifiers: Active/Remission status: currently active Current episode severity: moderate (3) Cocaine dependence Current Visit: Yes Status: Acute Qualifiers: Substance use status: uncomplicated Qualified Code(s): F14.20 - Cocaine dependence, uncomplicated (4) Heroin dependence Current Visit: Yes Status: Acute (5) Alcohol dependence Current Visit: No Status: Acute (6) Alcohol dependence with uncomplicated withdrawal Current Visit: No Status: Acute (7) HTN (hypertension) Current Visit: No Status: Chronic Qualifiers: Hypertension type: unspecified Qualified Code(s): I10 - Essential (primary ) hypertension (8) Nicotine dependence Current Visit: No Status: Chronic Qualifiers: Nicotine product type: cigarettes Substance use status: uncomplicated Qualified Code(s): F17.210 - Nicotine dependence, cigarettes, uncomplicated (9) Hx of seizure disorder Current Visit: No Status: Suspected (10) Substance induced mood disorder Current Visit: No Status: Acute - Initial Treatment Plan Initial Treatment Plan: Continue in patient drug Detox treatment. Seroquel 50 mg po q hs
[2017-07-27] MEDS: chlordiazePOXIDE HCL 25 MG CAPSULE PO SCH ×2 (16:59→22:12)
[2017-07-27] MEDS: QUEtiapine FUMARATE 50 MG TABLET PO SCH (22:12)
[2017-07-27] MEDS: THIAMINE HCL 100 MG TABLET (FP) PO SCH (22:12)
[2017-07-28] MEDS ORDERED: cloNIDine HCL 0.1 MG TABLET PO ONE ×2 (06:06→21:56)
--- NOTE | 2017-07-28 06:11 | PN ---
[facility] Progress Note Note: Patient's blood pressure is B/P 146/103. Patient is asymptomatic. Vital Signs Temperature 97.7 F 07/28/17 06:05 Pulse Rate 65 07/28/17 06:05 Respiratory Rate 18 07/28/17 06:05 Blood Pressure 146/103 07/28/17 06:05 O2 Sat by Pulse Oximetry (%) Laboratory Last Values WBC 4.0 K/mm3 (4.0-10.0) D 07/27/17 08:00 RBC 4.29 M/mm3 (4.00-5.60) 07/27/17 08:00 Hgb 13.0 GM/dL (11.7-16.9) 07/27/17 08:00 Hct 39.5 % (35.4-49) 07/27/17 08:00 MCV 92.0 fl (80-96) 07/27/17 08:00 MCH 30.3 pg (25.7-33.7) 07/27/17 08:00 MCHC 33.0 g/dl (32.0-35.9) 07/27/17 08:00 RDW 15.1 % (11.9-15.9) D 07/27/17 08:00 Plt Count 155 K/MM3 (134-434) D 07/27/17 08:00 MPV 10.1 fl (7.5-11.1) 07/27/17 08:00 Sodium 140 mmol/L (136-145) 07/27/17 08:00 Potassium 3.9 mmol/L (3.5-5.1) 07/27/17 08:00 Chloride 102 mmol/L (98-107) 07/27/17 08:00 Carbon Dioxide 31 mmol/L (21-32) 07/27/17 08:00 Anion Gap 7 (8-16) L 07/27/17 08:00 BUN 12 mg/dL (7-18) D 07/27/17 08:00 Creatinine 0.6 mg/dL (0.7-1.3) L D 07/27/17 08:00 Creat Clearance w eGFR > 60 (>60) 07/27/17 08:00 Random Glucose 91 mg/dL (74-106) 07/27/17 08:00 Calcium 9.1 mg/dL (8.5-10.1) 07/27/17 08:00 Total Bilirubin 0.7 mg/dL (0.2-1.0) D 07/27/17 08:00 AST 64 U/L (15-37) H D 07/27/17 08:00 ALT 83 U/L (12-78) H D 07/27/17 08:00 Alkaline Phosphatase 127 U/L (45-117) H 07/27/17 08:00 Total Protein 7.8 g/dl (6.4-8.2) 07/27/17 08:00 Albumin 3.8 g/dl (3.4-5.0) 07/27/17 08:00 Urine Color Straw 07/27/17 09:20 Urine Appearance Clear 07/27/17 09:20 Urine pH 6.0 (5.0-8.0) 07/27/17 09:20 Ur Specific [place] 1.003 (1.001-1.035) 07/27/17 09:20 Urine Protein Negative (NEGATIVE) 07/27/17 09:20 Urine Glucose (UA) Negative (NEGATIVE) 07/27/17 09:20 Urine Ketones Negative (NEGATIVE) 07/27/17 09:20 Urine Blood Negative (NEGATIVE) 07/27/17 09:20 Urine Nitrite Negative (NEGATIVE) 07/27/17 09:20 Urine Bilirubin Negative (<2.0 mg/dL) 07/27/17 09:20 Urine Urobilinogen Negative mg/dL (0.2-1.0) 07/27/17 09:20 Ur Leukocyte Esterase Negative (NEGATIVE) 07/27/17 09:20 RPR Titer Nonreactive (NONREACTIVE) 07/27/17 08:00 HIV 1&2 Antibody Screen Negative 07/27/17 08:00 HIV P24 Antigen Negative 07/27/17 08:00 Action: Clonidine 0.1mg tablet oral ordered.
[2017-07-28] MEDS: chlordiazePOXIDE HCL 25 MG CAPSULE PO SCH ×4 (06:36→22:37)
[2017-07-28] MEDS ORDERED: METHADONE HCL 40 MG DISPERSABLE TABLET PO SCH (08:27)
[2017-07-28] MEDS ORDERED: METHADONE HCL 40 MG DISPERSABLE TABLET ONE (08:52)
[2017-07-28] MEDS ORDERED: METHADONE HCL 10 MG TABLET ONE (08:53)
[2017-07-28] MEDS: METHADONE 80 MG, METHADONE 20 MG PO SCH (08:57)
[2017-07-28] MEDS ORDERED: METHADONE HCL 5 MG TABLET (FOR DETOX USE ONLY) PO SCH (10:00)
[2017-07-28] MEDS ORDERED: diazePAM 5 MG TABLET PO SCH (10:00)
--- NOTE | 2017-07-28 10:00 | PN ---
[facility] CIWA - CIWA Score Nausea/Vomitin-Mild Nausea/No Vomiting Muscle Tremors: 3 Anxiety: 3 Agitation: 3 Paroxysmal Sweats: 1-Minimal Palms Moist Orientation: 0-Oriented Tacttile Disturbances: 0-None Auditory Disturbances: 0-None Visual Disturbances: 0-None Headache: 0-None Present CIWA-Ar Total Score: 11 S Progress Note (SOAP) Subjective: sweat tremor trouble sleep at night gi distress patient reported on methadone program 100 mg po daily take home bottle in property Objective: 07/28/17 10:02 Vital Signs Temperature 97.5 F L 07/28/17 09:39 Pulse Rate 73 07/28/17 09:39 Respiratory Rate 16 07/28/17 09:39 Blood Pressure 147/104 07/28/17 09:39 O2 Sat by Pulse Oximetry (%) Laboratory Last Values WBC 4.0 K/mm3 (4.0-10.0) D 07/27/17 08:00 RBC 4.29 M/mm3 (4.00-5.60) 07/27/17 08:00 Hgb 13.0 GM/dL (11.7-16.9) 07/27/17 08:00 Hct 39.5 % (35.4-49) 07/27/17 08:00 MCV 92.0 fl (80-96) 07/27/17 08:00 MCH 30.3 pg (25.7-33.7) 07/27/17 08:00 MCHC 33.0 g/dl (32.0-35.9) 07/27/17 08:00 RDW 15.1 % (11.9-15.9) D 07/27/17 08:00 Plt Count 155 K/MM3 (134-434) D 07/27/17 08:00 MPV 10.1 fl (7.5-11.1) 07/27/17 08:00 Sodium 140 mmol/L (136-145) 07/27/17 08:00 Potassium 3.9 mmol/L (3.5-5.1) 07/27/17 08:00 Chloride 102 mmol/L (98-107) 07/27/17 08:00 Carbon Dioxide 31 mmol/L (21-32) 07/27/17 08:00 Anion Gap 7 (8-16) L 07/27/17 08:00 BUN 12 mg/dL (7-18) D 07/27/17 08:00 Creatinine 0.6 mg/dL (0.7-1.3) L D 07/27/17 08:00 Creat Clearance w eGFR > 60 (>60) 07/27/17 08:00 Random Glucose 91 mg/dL (74-106) 07/27/17 08:00 Calcium 9.1 mg/dL (8.5-10.1) 07/27/17 08:00 Total Bilirubin 0.7 mg/dL (0.2-1.0) D 07/27/17 08:00 AST 64 U/L (15-37) H D 07/27/17 08:00 ALT 83 U/L (12-78) H D 07/27/17 08:00 Alkaline Phosphatase 127 U/L (45-117) H 07/27/17 08:00 Total Protein 7.8 g/dl (6.4-8.2) 07/27/17 08:00 Albumin 3.8 g/dl (3.4-5.0) 07/27/17 08:00 Urine Color Straw 07/27/17 09:20 Urine Appearance Clear 07/27/17 09:20 Urine pH 6.0 (5.0-8.0) 07/27/17 09:20 Ur Specific [place] 1.003 (1.001-1.035) 07/27/17 09:20 Urine Protein Negative (NEGATIVE) 07/27/17 09:20 Urine Glucose (UA) Negative (NEGATIVE) 07/27/17 09:20 Urine Ketones Negative (NEGATIVE) 07/27/17 09:20 Urine Blood Negative (NEGATIVE) 07/27/17 09:20 Urine Nitrite Negative (NEGATIVE) 07/27/17 09:20 Urine Bilirubin Negative (<2.0 mg/dL) 07/27/17 09:20 Urine Urobilinogen Negative mg/dL (0.2-1.0) 07/27/17 09:20 Ur Leukocyte Esterase Negative (NEGATIVE) 07/27/17 09:20 RPR Titer Nonreactive (NONREACTIVE) 07/27/17 08:00 HIV 1&2 Antibody Screen Negative 07/27/17 08:00 HIV P24 Antigen Negative 07/27/17 08:00 lab noted Assessment: 07/28/17 10:04 withdrawal sx hypertension Plan: continue detox patient was taking nifedipine in the community unable to remember the name of the pharmacy and the dosage of the medication begin low dosage
[2017-07-28] MEDS: NICOTINE 21 MG/24 HOURS TOPICAL PATCH TD SCH (10:07)
[2017-07-28] MEDS: PRENATAL VITAMINS W/ FOLIC ACID TABLET (FP) PO SCH (10:07)
[2017-07-28] MEDS ORDERED: LIDOCAINE VISCOUS 2% ORAL/TOP 20 ML UNIT-DOSE CUP MM PRN (12:13)
[2017-07-28] MEDS: NIFEdipine E.R. 30 MG TABLET (FP) PO SCH (13:33)
[2017-07-28] MEDS: AMOXICILLIN 500 MG CAPSULE (FP) PO SCH ×2 (13:34→22:37)
[2017-07-28] MEDS ORDERED: NIFEdipine 10 MG CAPSULE (FP) PO SCH (14:00)
--- NOTE | 2017-07-28 21:56 | PN ---
[facility] Progress Note Note: Vital Signs Temperature 98.6 F 07/28/17 17:19 Pulse Rate 78 07/28/17 17:19 Respiratory Rate 18 07/28/17 17:19 Blood Pressure 139/102 07/28/17 17:19 O2 Sat by Pulse Oximetry (%) asymptomatic elevated diastolic BP stat clonidine 0.1 mg increase fluids continue to monitor
[2017-07-28] MEDS ORDERED: cloNIDine HCL 0.1 MG TABLET PO SCH (22:00)
[2017-07-28] MEDS: QUEtiapine FUMARATE 50 MG TABLET PO SCH (22:37)
[2017-07-28] MEDS: THIAMINE HCL 100 MG TABLET (FP) PO SCH (22:37)
--- NOTE | 2017-07-29 00:50 | EKG ---
Test Reason : Blood Pressure : / mmHG Vent. Rate : 074 BPM Atrial Rate : 074 BPM P-R Int : 168 ms QRS Dur : 100 ms QT Int : 470 ms P-R-T Axes : 055 046 074 degrees QTc Int : 521 ms NORMAL SINUS RHYTHM PROLONGED QT ABNORMAL ECG WHEN COMPARED WITH ECG OF 18-FEB-2017 00:21, NO SIGNIFICANT CHANGE WAS FOUND Confirmed by SHAHRAM FLORES MD ([id number]) on 07/29/2017 12:50:20 AM Referred By: Confirmed By:SHAHRAM FLORES MD
[2017-07-29] MEDS ORDERED: METHADONE HCL 10 MG TABLET ONE (04:49)
[2017-07-29] MEDS ORDERED: METHADONE HCL 40 MG DISPERSABLE TABLET ONE (04:49)
[2017-07-29] MEDS: chlordiazePOXIDE HCL 25 MG CAPSULE PO SCH ×2 (05:52→10:55)
[2017-07-29] MEDS: METHADONE 80 MG, METHADONE 20 MG PO SCH (05:52)
[2017-07-29] MEDS: AMOXICILLIN 500 MG CAPSULE (FP) PO SCH ×2 (05:52→14:22)
--- NOTE | 2017-07-29 10:14 | PN ---
[facility] Progress Note (SOAP) Subjective: feeling better no tremor no sweat less anxiousness able to chew regular food today Objective: 07/29/17 10:13 Vital Signs Temperature 98.1 F 07/29/17 09:16 Pulse Rate 84 07/29/17 09:16 Respiratory Rate 18 07/29/17 09:16 Blood Pressure 116/53 07/29/17 09:16 O2 Sat by Pulse Oximetry (%) Laboratory Last Values WBC 4.0 K/mm3 (4.0-10.0) D 07/27/17 08:00 RBC 4.29 M/mm3 (4.00-5.60) 07/27/17 08:00 Hgb 13.0 GM/dL (11.7-16.9) 07/27/17 08:00 Hct 39.5 % (35.4-49) 07/27/17 08:00 MCV 92.0 fl (80-96) 07/27/17 08:00 MCH 30.3 pg (25.7-33.7) 07/27/17 08:00 MCHC 33.0 g/dl (32.0-35.9) 07/27/17 08:00 RDW 15.1 % (11.9-15.9) D 07/27/17 08:00 Plt Count 155 K/MM3 (134-434) D 07/27/17 08:00 MPV 10.1 fl (7.5-11.1) 07/27/17 08:00 Sodium 140 mmol/L (136-145) 07/27/17 08:00 Potassium 3.9 mmol/L (3.5-5.1) 07/27/17 08:00 Chloride 102 mmol/L (98-107) 07/27/17 08:00 Carbon Dioxide 31 mmol/L (21-32) 07/27/17 08:00 Anion Gap 7 (8-16) L 07/27/17 08:00 BUN 12 mg/dL (7-18) D 07/27/17 08:00 Creatinine 0.6 mg/dL (0.7-1.3) L D 07/27/17 08:00 Creat Clearance w eGFR > 60 (>60) 07/27/17 08:00 Random Glucose 91 mg/dL (74-106) 07/27/17 08:00 Calcium 9.1 mg/dL (8.5-10.1) 07/27/17 08:00 Total Bilirubin 0.7 mg/dL (0.2-1.0) D 07/27/17 08:00 AST 64 U/L (15-37) H D 07/27/17 08:00 ALT 83 U/L (12-78) H D 07/27/17 08:00 Alkaline Phosphatase 127 U/L (45-117) H 07/27/17 08:00 Total Protein 7.8 g/dl (6.4-8.2) 07/27/17 08:00 Albumin 3.8 g/dl (3.4-5.0) 07/27/17 08:00 Urine Color Straw 07/27/17 09:20 Urine Appearance Clear 07/27/17 09:20 Urine pH 6.0 (5.0-8.0) 07/27/17 09:20 Ur Specific [place] 1.003 (1.001-1.035) 07/27/17 09:20 Urine Protein Negative (NEGATIVE) 07/27/17 09:20 Urine Glucose (UA) Negative (NEGATIVE) 07/27/17 09:20 Urine Ketones Negative (NEGATIVE) 07/27/17 09:20 Urine Blood Negative (NEGATIVE) 07/27/17 09:20 Urine Nitrite Negative (NEGATIVE) 07/27/17 09:20 Urine Bilirubin Negative (<2.0 mg/dL) 07/27/17 09:20 Urine Urobilinogen Negative mg/dL (0.2-1.0) 07/27/17 09:20 Ur Leukocyte Esterase Negative (NEGATIVE) 07/27/17 09:20 RPR Titer Nonreactive (NONREACTIVE) 07/27/17 08:00 HIV 1&2 Antibody Screen Negative 07/27/17 08:00 HIV P24 Antigen Negative 07/27/17 08:00 lab noted Assessment: 07/29/17 10:14 mild withdrawal sx 07/29/17 10:20 Plan: medically supervised [facility] health teaching on oral hygiene
[2017-07-29] MEDS: NIFEdipine E.R. 30 MG TABLET (FP) PO SCH (10:55)
[2017-07-29] MEDS: PRENATAL VITAMINS W/ FOLIC ACID TABLET (FP) PO SCH (10:55)
[2017-07-29] MEDS: NICOTINE 21 MG/24 HOURS TOPICAL PATCH TD SCH (10:55)
[2017-07-29] MEDS: chlordiazePOXIDE 5 MG CAPSULE PO SCH ×2 (18:03→22:24)
[2017-07-29] MEDS: THIAMINE HCL 100 MG TABLET (FP) PO SCH (22:24)
[2017-07-29] MEDS: QUEtiapine FUMARATE 50 MG TABLET PO SCH (22:24)
[2017-07-30] MEDS ORDERED: METHADONE HCL 40 MG DISPERSABLE TABLET ONE (04:23)
[2017-07-30] MEDS ORDERED: METHADONE HCL 10 MG TABLET ONE (04:24)
[2017-07-30] MEDS: chlordiazePOXIDE 5 MG CAPSULE PO SCH (06:00)
[2017-07-30] MEDS: METHADONE 80 MG, METHADONE 20 MG PO SCH (06:03)
[2017-07-30 09:17] VITALS: BP 130/82; PULSE 92; TEMP 96.1
--- NOTE | 2017-07-30 09:30 | DS ---
[facility] Detox Discharge Summary Admission Date: 07/26/17 Discharge Date: 07/30/17 - History Present History: Alcohol Dependence Additional Comments: 36 years old male admitted on 07/26/17 for alcohol withdrawal x completed detox regimen tolerated well denies alcohol withdrawal sx alert oriented x 3 no acute distress willing to return to methadone program and agrees aftercare at [facility] patient acknowledged follow up with [facility] for hypertension and health related issues - Physical Exam Results Vital Signs: Vital Signs Temperature 96.1 F L 07/30/17 09:17 Pulse Rate 92 H 07/30/17 09:17 Respiratory Rate 18 07/30/17 09:17 Blood Pressure 130/82 07/30/17 09:17 O2 Sat by Pulse Oximetry (%) Pertinent Admission Physical Exam Findings: withdrawal sx Vital Signs Temperature 96.1 F L 07/30/17 09:17 Pulse Rate 92 H 07/30/17 09:17 Respiratory Rate 18 07/30/17 09:17 Blood Pressure 130/82 07/30/17 09:17 O2 Sat by Pulse Oximetry (%) Laboratory Last Values WBC 4.0 K/mm3 (4.0-10.0) D 07/27/17 08:00 RBC 4.29 M/mm3 (4.00-5.60) 07/27/17 08:00 Hgb 13.0 GM/dL (11.7-16.9) 07/27/17 08:00 Hct 39.5 % (35.4-49) 07/27/17 08:00 MCV 92.0 fl (80-96) 07/27/17 08:00 MCH 30.3 pg (25.7-33.7) 07/27/17 08:00 MCHC 33.0 g/dl (32.0-35.9) 07/27/17 08:00 RDW 15.1 % (11.9-15.9) D 07/27/17 08:00 Plt Count 155 K/MM3 (134-434) D 07/27/17 08:00 MPV 10.1 fl (7.5-11.1) 07/27/17 08:00 Sodium 140 mmol/L (136-145) 07/27/17 08:00 Potassium 3.9 mmol/L (3.5-5.1) 07/27/17 08:00 Chloride 102 mmol/L (98-107) 07/27/17 08:00 Carbon Dioxide 31 mmol/L (21-32) 07/27/17 08:00 Anion Gap 7 (8-16) L 07/27/17 08:00 BUN 12 mg/dL (7-18) D 07/27/17 08:00 Creatinine 0.6 mg/dL (0.7-1.3) L D 07/27/17 08:00 Creat Clearance w eGFR > 60 (>60) 07/27/17 08:00 Random Glucose 91 mg/dL (74-106) 07/27/17 08:00 Calcium 9.1 mg/dL (8.5-10.1) 07/27/17 08:00 Total Bilirubin 0.7 mg/dL (0.2-1.0) D 07/27/17 08:00 AST 64 U/L (15-37) H D 07/27/17 08:00 ALT 83 U/L (12-78) H D 07/27/17 08:00 Alkaline Phosphatase 127 U/L (45-117) H 07/27/17 08:00 Total Protein 7.8 g/dl (6.4-8.2) 07/27/17 08:00 Albumin 3.8 g/dl (3.4-5.0) 07/27/17 08:00 Urine Color Straw 07/27/17 09:20 Urine Appearance Clear 07/27/17 09:20 Urine pH 6.0 (5.0-8.0) 07/27/17 09:20 Ur Specific [place] 1.003 (1.001-1.035) 07/27/17 09:20 Urine Protein Negative (NEGATIVE) 07/27/17 09:20 Urine Glucose (UA) Negative (NEGATIVE) 07/27/17 09:20 Urine Ketones Negative (NEGATIVE) 07/27/17:20 Urine Blood Negative (NEGATIVE) 07/27/17:20 Urine Nitrite Negative (NEGATIVE) 07/27/17 09:20 Urine Bilirubin Negative (<2.0 mg/dL) 07/27/17 09:20 Urine Urobilinogen Negative mg/dL (0.2-1.0) 07/27/17 09:20 Ur Leukocyte Esterase Negative (NEGATIVE) 07/27/17 09:20 RPR Titer Nonreactive (NONREACTIVE) 07/27/17 08:00 HIV 1&2 Antibody Screen Negative 07/27/17 08:00 HIV P24 Antigen Negative 07/27/17 08:00 lab noted - Treatment Hospital Course: Detox Protocol Followed, Detoxed Safely, Responded well, Discharged Condition Good, Rehab Referral Accepted Patient has Accepted a Rehab Referral to: [facility] - Medication Discharge Medications: Ambulatory Orders Methadone [Dolophine -] 100 mg PO DAILY 07/28/17 Nifedipine [Procardia -] 30 mg PO DAILY #30 capsule 07/29/17 - Diagnosis (1) Methadone maintenance therapy patient Current Visit: Yes Status: Chronic (2) Alcohol dependence with uncomplicated withdrawal Current Visit: Yes Status: Acute (3) HTN (hypertension) Current Visit: Yes Status: Chronic Qualifiers: Hypertension type: unspecified Qualified Code(s): I10 - Essential (primary ) hypertension (4) Hepatitis C Current Visit: No Status: Chronic Qualifiers: Viral hepatitis chronicity: unspecified Hepatic coma status: without hepatic coma Qualified Code(s): B19.20 - Unspecified viral hepatitis C without hepatic coma (5) Nicotine dependence Current Visit: Yes Status: Acute Qualifiers: Nicotine product type: cigarettes Substance use status: in withdrawal Qualified Code(s): F17.213 - Nicotine dependence, cigarettes, with withdrawal - AMA Did Patient Leave Against Medical Advice: No
[2017-07-30] MEDS: NIFEdipine E.R. 30 MG TABLET (FP) PO SCH (09:39)
[2017-07-30] MEDS: PRENATAL VITAMINS W/ FOLIC ACID TABLET (FP) PO SCH (09:39)
[2017-07-30] MEDS: NICOTINE 21 MG/24 HOURS TOPICAL PATCH TD SCH (09:40)
[2017-07-30] MEDS ORDERED: diazePAM 5 MG TABLET PO SCH (10:00)
[2017-07-30] MEDS ORDERED: METHADONE HCL 10 MG TABLET (FOR DETOX USE ONLY) PO SCH (10:00)
[2017-07-30] MEDS ORDERED: chlordiazePOXIDE HCL 10 MG CAPSULE PO SCH (17:00)
[2017-07-31] MEDS ORDERED: METHADONE HCL 5 MG TABLET (FOR DETOX USE ONLY) PO SCH (06:00)
== END 2017-07-30 10:30 | disposition home or self-care (01) | DRG 773 ==
LOC: YASAS 11:24 → Y6N 19:07
PROVIDERS: ADMIT Surgery; ATTEND Surgery
PROC: HZ2ZZZZ Detoxification Services for Substance Abuse Treatment (ICD-10-PCS; principal; 2017-07-26)
DX: F10.230 Alcohol dependence with withdrawal, uncomplicated (principal); F11.20 Opioid dependence, uncomplicated; F17.213 Nicotine dependence, cigarettes, with withdrawal; F41.1 Generalized anxiety disorder; F31.9 Bipolar disorder, unspecified; F19.24 Other psychoactive substance dependence with psychoactive substance-induced mood disorder; I10 Essential (primary) hypertension; B19.20 Unspecified viral hepatitis C without hepatic coma; Z86.69 Personal history of other diseases of the nervous system and sense organs
CPT/HCPCS: 36415; 80053; 81003; 85027; 86593; 87389; 93005; 93010; J0735

== ENCOUNTER 2017-10-29 11:29 | Inpatient (IN) | payer OTHER ==
[2017-10-29 12:08] VITALS: BMI 26.4
--- NOTE | 2017-10-29 13:48 | HP ---
CIWA Score - CIWA Score Nausea/Vomitin Muscle Tremors: 3 Anxiety: 3 Agitation: 3 Paroxysmal Sweats: 1-Minimal Palms Moist Orientation: 0-Oriented Tacttile Disturbances: 1-Very Mild Itch/Numbness Auditory Disturbances: 1-Very Mild Visual Disturbances: 0-None Headache: 2-Mild CIWA-Ar Total Score: 17 Admission ROS BHS - HPI Chief Complaint: i need help to stop drinking alcohol Allergies/Adverse Reactions: Allergies Allergy/AdvReac Type Severity Reaction Status Date / Time No Known Allergies Allergy Verified 10/29/17 13:37 History of Present Illness: this 36 years old male with alcohol dependence,seeking detox,withdrawal symptom, last detox [facility] 07/26/17 to 07/30/17 mmtp 100 mgs/day,last medicated today weight loss history of hypertension,hepatitis c weight loss nicotine dependence multiple admissions in detox,keep relapsing no significant period of sobriety bipolar disorder - Ebola screening Have you traveled outside of the country in the last 21 days: No (N) Have you had contact with anyone from an Ebola affected area: No Have you been sick,other than usual withdrawal symptoms: No Do you have a fever: No - Review of Systems Constitutional: Malaise, Night Sweats, Changes in sleep, Weakness, Unexplained wgt Loss EENT: reports: Nose Congestion Respiratory: reports: No Symptoms reported Cardiac: reports: Palpitations GI: reports: Diarrhea, Nausea, Vomiting, Abdominal cramping : reports: No Symptoms Reported Musculoskeletal: reports: Back Pain, Muscle Pain Integumentary: reports: Dryness Neuro: reports: Headache, Tremors Endocrine: reports: No Symptoms Reported Hematology: reports: No Symptoms Reported Psychiatric: reports: Judgement Intact, Mood/Affect Appropiate, Orientated x3, Agitated, Anxious Patient History - Patient Medical History Hx Anemia: No Hx Asthma: No Hx Chronic Obstructive Pulmonary Disease (COPD): No Hx Cancer: No Hx Cardiac Disorders: No Hx Congestive Heart Failure: No Hx Hypertension: Yes (B/P=139/100 non compliance) Hx Hypercholesterolemia: No Hx Pacemaker: No HX Cerebrovascular Accident: No Hx Seizures: Yes (WITHDRAWAL SEIZURES - LAST EPISODE WAS 10 yrs ago) Hx Dementia: No Hx Diabetes: No Hx Gastrointestinal Disorders: No Hx Liver Disease: Yes (hep c +) Hx Genitourinary Disorders: No Hx Sexually Transmitted Disorders: No Hx Renal Disease (ESRD): No Hx Thyroid Disease: No Hx Human Immunodeficiency Virus (HIV): No (last 2017 negative) Hx Hepatitis C: Yes (NO TXMENT) Hx Depression: Yes Hx Suicide Attempt: No Hx Bipolar Disorder: Yes (AND ANXIETY DISORDER) Hx Schizophrenia: No Other Medical History: no suicidal,no homicidal - Patient Surgical History Past Surgical History: Yes Hx Neurologic Surgery: No Hx Cataract Extraction: No Hx Cardiac Surgery: No Hx Lung Surgery: No Hx Breast Surgery: No Hx Breast Biopsy: No Hx Abdominal Surgery: Yes (08/03/11-s/p cholecystectomy) Hx Appendectomy: No Hx Cholecystectomy: No Hx Genitourinary Surgery: Yes (kidney stone removal) Hx Section: No Hx Orthopedic Surgery: No Hx Hysterectomy: No Anesthesia Reaction: No - PPD History Previous Implant?: Yes Documented Results: Negative w/proof Implanted On Prior [facility] Admission?: Yes Date: 02/20/17 Results: 0 mm PPD to be Administered?: No - Smoking Cessation Smoking history: Current every day smoker Have you smoked in the past 12 months: Yes Aproximately how many cigarettes per day: 20 Cigars Per Day: 0 Hx Chewing Tobacco Use: No Initiated information on smoking cessation: Yes 'Breaking Loose' booklet given: 10/29/17 - Substance & Tx. History Hx Alcohol Use: Yes Substance Use Type: Alcohol Hx Substance Use Treatment: No ([facility] 07/26/17 to 07/30/17) - Substances Abused Cocaine Route: Injection Frequency: Daily Amount used: $100 Age of first use: 16 Date of Last Use: 10/27/17 Alcohol-vodka/beer Route: Oral Frequency: Daily Amount used: 2-3 pts./1 case Age of first use: 16 Date of Last Use: 10/29/17 Family Disease History - Family Disease History Family Disease History: Other: Grandparent (GF WAS ETOH DEPENDENT AND ), Mother (HX/O SEIZURE, DM) Admission Physical Exam S - Vital Signs Vital Signs: Vital Signs - 24 hr 10/29/17 12:05 Temperature 99 F Pulse Rate 86 Respiratory 18 Rate Blood Pressure 192/124 - Physical General Appearance: Yes: Moderate Distress, Tremorous, Irritable, Sweating, Anxious HEENTM: Yes: Normal ENT Inspection, IVAN, Pharynx Normal Respiratory: Yes: Lungs Clear, Normal Breath Sounds, No Respiratory Distress Neck: Yes: Within Normal Limits, Supple, Trachea in good position Breast: Yes: Within Normal Limits Cardiology: Yes: Within Normal Limits, Regular Rhythm, Regular Rate, S1, S2 Abdominal: Yes: Within Normal Limits, Normal Bowel Sounds, Soft Genitourinary: Yes: Within Normal Limits Back: Yes: Normal Inspection, Muscle Spasm Musculoskeletal: Yes: full range of Motion, Back pain, Muscle Pain Extremities: Yes: Within Normal Limits, Normal Range of Motion, Tremors Neurological: Yes: medical sales representative II-XII NML intact, Alert, Motor Strength 5/5 Integumentary: Yes: Dry Lymphatic: Yes: Within Normal Limits - Diagnostic (1) Alcohol dependence with uncomplicated withdrawal Current Visit: No Status: Acute (2) Nicotine dependence Current Visit: No Status: Acute Qualifiers: Nicotine product type: cigarettes Substance use status: in withdrawal Qualified Code(s): F17.213 - Nicotine dependence, cigarettes, with withdrawal (3) HTN (hypertension) Current Visit: No Status: Chronic Qualifiers: Hypertension type: unspecified Qualified Code(s): I10 - Essential (primary ) hypertension (4) Hepatitis C Current Visit: No Status: Chronic Qualifiers: Viral hepatitis chronicity: unspecified Hepatic coma status: without hepatic coma Qualified Code(s): B19.20 - Unspecified viral hepatitis C without hepatic coma (5) Methadone maintenance therapy patient Current Visit: No Status: Chronic (6) Hx of seizure disorder Current Visit: No Status: Suspected Cleared for Admission [facility] - Detox or Rehab [facility] Level of Care: Medically Managed Detox Regimen/Protocol: Librium [facility] Breath Alcohol Content Breath Alcohol Content: 0.160 Urine Drug Screen - Results Drug Screen Negative: No Urine Drug Screen Results: BZO-Benzodiazepines, MTD-Methadone
[2017-10-29] MEDS ORDERED: P-EPHED 60MG/TRIPROLIDI 2.5MG TABLET PO PRN (14:11)
[2017-10-29] MEDS ORDERED: LOPERAMIDE HCL 2 MG CAPSULE PO PRN (14:11)
[2017-10-29] MEDS ORDERED: chlordiazePOXIDE HCL 25 MG CAPSULE PO PRN (14:11)
[2017-10-29] MEDS ORDERED: MAGNESIUM CITRATE 300 ML BOTTLE PO PRN (14:11)
[2017-10-29] MEDS ORDERED: MAG HYDROX/AL HYDROX/SIMETH 30 ML UNIT-DOSE CUP PO PRN (14:11)
[2017-10-29] MEDS ORDERED: ACETAMINOPHEN 325 MG TABLET (FP) PO PRN (14:11)
[2017-10-29] MEDS ORDERED: IBUPROFEN 400 MG TABLET (FP) PO PRN (14:11)
[2017-10-29] MEDS ORDERED: guaiFENesin/D-METHORPHAN HB 10 ML UNIT-DOSE CUPS PO PRN (14:11)
[2017-10-29] MEDS ORDERED: MENTHOL/PHENOL 1 EACH UD MM PRN (14:11)
[2017-10-29] MEDS ORDERED: MAGNESIUM HYDROX 2400MG/30ML ORAL SUSPENSION 30 ML CUP PO PRN (14:11)
[2017-10-29] MEDS ORDERED: NICOTINE POLACRILEX 2 MG GUM BUC PRN (14:11)
[2017-10-29] MEDS: NICOTINE 21 MG/24 HOURS TOPICAL PATCH TD SCH (15:37)
[2017-10-29] MEDS: NIFEdipine E.R. 30 MG TABLET (FP) PO SCH (15:38)
--- NOTE | 2017-10-29 17:33 | EKG ---
Test Reason : Blood Pressure : / mmHG Vent. Rate : 069 BPM Atrial Rate : 069 BPM P-R Int : 160 ms QRS Dur : 104 ms QT Int : 442 ms P-R-T Axes : 040 058 074 degrees QTc Int : 473 ms NORMAL SINUS RHYTHM NORMAL ECG WHEN COMPARED WITH ECG OF 26-JUL-2017 22:19, QT HAS SHORTENED Confirmed by GERARD NASH MD ([id number]) on 10/29/2017 5:33:02 PM Referred By: Confirmed By:GERARD NASH MD
[2017-10-29] MEDS: chlordiazePOXIDE HCL 25 MG CAPSULE PO SCH ×2 (18:02→22:04)
[2017-10-29] MEDS ORDERED: cloNIDine HCL 0.1 MG TABLET PO SCH (21:15)
--- NOTE | 2017-10-29 21:27 | PN ---
S Progress Note Note: Vital Signs Temperature 98.5 F 10/29/17 17:54 Pulse Rate 49 L 10/29/17 21:13 Respiratory Rate 20 10/29/17 17:54 Blood Pressure 169/104 10/29/17 21:13 O2 Sat by Pulse Oximetry (%) one time dose clonidine 0.2 mg increase fluids continue to monitor
[2017-10-29] MEDS ORDERED: MELATONIN 5 MG TABLETS PO PRN (22:00)
[2017-10-29] MEDS: THIAMINE HCL 100 MG TABLET (FP) PO SCH (22:04)
[2017-10-29 23:21] LABS: URINE APPEARANCE CLEAR; URINE BILIRUBIN NEGATIVE (<2.0 mg/dL); URINE COLOR LTYELLOW; URINE GLUCOSE (UA) NEGATIVE (NEGATIVE); URINE KETONE NEGATIVE (NEGATIVE); URINE LEUK ESTERASE NEGATIVE (NEGATIVE); URINE NITRITE NEGATIVE (NEGATIVE); URINE PROTEIN NEGATIVE (NEGATIVE); URINE UROBILINOGEN NEGATIVE mg/dL (0.2-1.0)
[2017-10-30] MEDS: chlordiazePOXIDE HCL 25 MG CAPSULE PO SCH ×4 (05:04→22:08)
[2017-10-30] MEDS ORDERED: METHADONE HCL 10 MG TABLET PO SCH (07:45)
[2017-10-30] MEDS ORDERED: METHADONE HCL 10 MG TABLET ONE (08:01)
[2017-10-30] MEDS ORDERED: METHADONE HCL 40 MG DISPERSABLE TABLET ONE (08:01)
[2017-10-30] MEDS: METHADONE 80 MG, METHADONE 20 MG PO SCH (08:02)
[2017-10-30] MEDS ORDERED: cloNIDine HCL 0.1 MG TABLET PO SCH (10:00)
[2017-10-30 10:13] LABS: HEMATOCRIT 34.5 % (35.4-49); HEMOGLOBIN 11.4 GM/dL (11.7-16.9); MCH 30.7 pg (25.7-33.7); MCHC 33.2 g/dl (32.0-35.9); MEAN CELL VOLUME 92.5 fl (80-96); MEAN PLT VOLUME 9.6 fl (7.5-11.1); PLATELET COUNT 142 K/MM3 (134-434); RBC 3.73 M/mm3 (4.00-5.60); RDW 14.2 % (11.9-15.9); WHITE BLOOD COUNT 2.7 K/mm3 (4.0-10.0)
[2017-10-30] MEDS: NIFEdipine E.R. 30 MG TABLET (FP) PO SCH (10:29)
[2017-10-30] MEDS: PRENATAL VITAMINS W/ FOLIC ACID TABLET (FP) PO SCH (10:29)
[2017-10-30] MEDS: NICOTINE 21 MG/24 HOURS TOPICAL PATCH TD SCH (10:30)
[2017-10-30 10:35] LABS: CHLORIDE 99 mmol/L (98-107); POTASSIUM 4.3 mmol/L (3.5-5.1); SODIUM 142 mmol/L (136-145)
--- NOTE | 2017-10-30 10:42 | PN ---
S CIWA - CIWA Score Nausea/Vomitin-No Nausea/No Vomiting Muscle Tremors: 4-Moderate,w/Arms Extend Anxiety: 4-Mod. Anxious/Guarded Agitation: 4-Moderately Restless Paroxysmal Sweats: 1-Minimal Palms Moist Orientation: 0-Oriented Tacttile Disturbances: 0-None Auditory Disturbances: 0-None Visual Disturbances: 0-None Headache: 0-None Present CIWA-Ar Total Score: 13 BHS Progress Note (SOAP) Subjective: C/O ANXIETY,IRRITABILITY,TREMORS,SWEATS,SKIN FLUSHING, INTERMITTENT SLEEP. ON 1/ 2 HR MONITORING FOR ALCOHOL INTOXICATION ON ADMISSION. PT REPORTS RIGHT ANKLE/ FOOT SWELLING WITH ABRASION ON HEEL FROM WEARING HIS SHOE FOR 3 DAYS OR MORE ON THE STREETS WITHOUT REMOVING THEM. PT STATES HE DOES NOT RECOLLECT ANY TRUAMA TO RIGHT LEG. STATES HE FEELS PAIN ON THE BACK WITH THE ABRASION ONLY. OOB AMBULATING WITH SLIGHT LIMP AND GROSS TREMORS OF UPPER EXTREMITIES. Objective: 10/30/17 10:41 Vital Signs 10/30/17 10/30/17 10/30/17 03:00 03:30 04:00 Temperature Pulse Rate 71 72 72 Respiratory 18 18 18 Rate Blood Pressure 10/30/17 10/30/17 10/30/17 04:30 05:00 05:30 Temperature Pulse Rate 72 70 67 Respiratory 18 18 18 Rate Blood Pressure 10/30/17 10/30/17 10/30/17 06:00 06:12 06:30 Temperature 97.9 F Pulse Rate 64 64 66 Respiratory 18 18 18 Rate Blood Pressure 109/70 10/30/17 10/30/17 10/30/17 07:00 07:30 08:00 Temperature Pulse Rate 66 68 71 Respiratory 18 18 18 Rate Blood Pressure 10/30/17 10/30/17 10/30/17 08:30 09:00 09:30 Temperature Pulse Rate 92 H 94 H 94 H Respiratory 18 18 18 Rate Blood Pressure 10/30/17 10:00 Temperature Pulse Rate 93 H Respiratory 18 Rate Blood Pressure Laboratory Tests 10/29/17 10/30/17 21:35 07:00 WBC 2.7 L RBC 3.73 L Hgb 11.4 L Hct 34.5 L MCV 92.5 MCH 30.7 MCHC 33.2 RDW 14.2 Plt Count 142 MPV 9.6 Urine Color Ltyellow Urine Appearance Clear Urine pH 6.0 Ur Specific [place] 1.004 Urine Protein Negative Urine Glucose (UA) Negative Urine Ketones Negative Urine Blood Negative Urine Nitrite Negative Urine Bilirubin Negative Urine Urobilinogen Negative Ur Leukocyte Esterase Negative OTHER LABS PENDING Assessment: 10/30/17 10:42 WITHDRAWAL SX Plan: CONTINUE DETOX
[2017-10-30 10:47] LABS: ALBUMIN 3.7 g/dl (3.4-5.0); ALK PHOS 181 U/L (45-117); ANION GAP 8 MMOL/L (8-16); BILIRUBIN,TOTAL 1.3 mg/dL (0.2-1.0); BLOOD UREA NITROGEN 12 mg/dL (7-18); CALCIUM 9.4 mg/dL (8.5-10.1); CO2 35 mmol/L (21-32); CREATININE 0.5 mg/dL (0.7-1.3); GLUCOSE,RANDOM 97 mg/dL (74-106); SGOT/AST 101 U/L (15-37); SGPT/ALT 162 U/L (12-78); TOT PROT 7.8 g/dl (6.4-8.2)
[2017-10-30] MEDS ORDERED: AMOX TR/POT CLAV 875MG/125MG TABLETS (FP) PO ONE (10:52)
[2017-10-30] MEDS ORDERED: BACITRACIN 0.9 GM PACKET TP ONE (12:38)
--- NOTE | 2017-10-30 15:25 | CONSULT ---
[facility] Psychiatric Consult - Data Date of interview: 10/30/17 Admission source: [facility] Identifying data: Patient is a 36 year old single male, without kids, unemployed (denies receiving financial assistance), and currently homeless. This is one of multiple admission for patient. Pt. admitted to for alcohol dependence. Substance Abuse History: Smoking Cessation. Smoking history: Current every day smoker. Have you smoked in the past 12 months: Yes. Aproximately how many cigarettes per day: 20. Cigars Per Day: 0. Hx Chewing Tobacco Use: No. Initiated information on smoking cessation: Yes. 'Breaking Loose' booklet given : 10/29/17. - Substance & Tx. History. Hx Alcohol Use: Yes. Substance Use Type: Alcohol. Hx Substance Use Treatment: No ([facility] 07/26/[facility] to 07/30/17). - Substances Abused. Cocaine. Route: Injection. Frequency: Daily. Amount used: $100. Age of first use: 16. Date of Last Use: 10/27/17. Alcohol- vodka/beer. Route: Oral. Frequency: Daily. Amount used: 2-3 pts./1 case. Age of first use: 16. Date of Last Use: 10/29/17 Medical History: hypertension, withdrawal seizures, Hep C, 08/03/11-s/p cholecystectomy, Kidney stone removal Psychiatric History: Patient denies h/o psychiatric hospitalization, outpatient care, and suicide attempt. Pt. reports poor sleep and anxiety. Pt. accepted seroquel 50mg with good effect during his previous admission in july of 2017. Physical/Sexual Abuse/Trauma History: denies. Mental Status Exam - Mental Status Exam Alert and Oriented to: Time, Place, Person Cognitive Function: Good Patient Appearance: Unkempt Mood: Euthymic Affect: Mood Congruent Patient Behavior: Cooperative Speech Pattern: Appropriate Voice Loudness: Normal Thought Process: Intact, Goal Oriented Thought Disorder: Not Present Hallucinations: Denies Suicidal Ideation: Denies Homicidal Ideation: Denies Insight/Judgement: Poor Sleep: Poorly Appetite: Fair Muscle strength/Tone: Normal Gait/Station: Normal Psychiatric Findings - Problem List ([place] 1, 2,3) (1) Anxiety Current Visit: Yes Status: Acute (2) Alcohol dependence with uncomplicated withdrawal Current Visit: Yes Status: Acute (3) Nicotine dependence Current Visit: Yes Status: Chronic Qualifiers: Nicotine product type: cigarettes Substance use status: in withdrawal Qualified Code(s): F17.213 - Nicotine dependence, cigarettes, with withdrawal (4) Insomnia Current Visit: Yes Status: Acute - Initial Treatment Plan Initial Treatment Plan: Psychoeducation provided. Detoxification in progress. Seroquel 50mg qhs ordered. Benefits and side effects discussed. Verbal consent given.
[2017-10-30] MEDS: AMOX TR/POT CLAV 875MG/125MG TABLETS (FP) PO SCH (17:23)
[2017-10-30] MEDS: hydrOXYzine PAMOATE 50 MG CAPSULE (FP) PO PRN ×2 (17:47→22:10)
[2017-10-30] MEDS: THIAMINE HCL 100 MG TABLET (FP) PO SCH (22:08)
[2017-10-30] MEDS: BACITRACIN 0.9 GM PACKET TP SCH (22:08)
[2017-10-30] MEDS: QUEtiapine FUMARATE 50 MG TABLET PO SCH (22:08)
[2017-10-31] MEDS ORDERED: METHADONE HCL 10 MG TABLET ONE (03:58)
[2017-10-31] MEDS ORDERED: METHADONE HCL 40 MG DISPERSABLE TABLET ONE (03:58)
[2017-10-31] MEDS: METHADONE 80 MG, METHADONE 20 MG PO SCH (05:21)
[2017-10-31] MEDS: hydrOXYzine PAMOATE 50 MG CAPSULE (FP) PO PRN ×4 (05:22→22:01)
[2017-10-31] MEDS: chlordiazePOXIDE HCL 25 MG CAPSULE PO SCH ×2 (05:22→10:09)
[2017-10-31] MEDS: AMOX TR/POT CLAV 875MG/125MG TABLETS (FP) PO SCH ×2 (07:05→17:14)
[2017-10-31] MEDS: PRENATAL VITAMINS W/ FOLIC ACID TABLET (FP) PO SCH (10:09)
[2017-10-31] MEDS: NICOTINE 21 MG/24 HOURS TOPICAL PATCH TD SCH (10:09)
[2017-10-31] MEDS: BACITRACIN 0.9 GM PACKET TP SCH ×2 (10:09→22:00)
[2017-10-31] MEDS: NIFEdipine E.R. 30 MG TABLET (FP) PO SCH (10:09)
--- NOTE | 2017-10-31 10:55 | PN ---
S CIWA - CIWA Score Nausea/Vomitin-No Nausea/No Vomiting Muscle Tremors: 4-Moderate,w/Arms Extend Anxiety: 4-Mod. Anxious/Guarded Agitation: 4-Moderately Restless Paroxysmal Sweats: 1-Minimal Palms Moist Orientation: 0-Oriented Tacttile Disturbances: 3-Moderate Itch/Numb/Burn (feet) Auditory Disturbances: 0-None Visual Disturbances: 0-None Headache: 0-None Present CIWA-Ar Total Score: 16 BHS Progress Note (SOAP) Subjective: ANXIETY,SWEATS,TREMORS,ITCHY FEET. Objective: 10/31/17 10:45 Vital Signs 10/31/17 10/31/17 10/31/17 03:30 06:14 09:08 Temperature 97.5 F L 98.9 F Pulse Rate 58 L 118 H Respiratory 16 18 18 Rate Blood Pressure 126/80 147/91 Laboratory Tests 10/29/17 10/30/17 10/30/17 21:35 07:00 07:00 WBC 2.7 L RBC 3.73 L Hgb 11.4 L Hct 34.5 L MCV 92.5 MCH 30.7 MCHC 33.2 RDW 14.2 Plt Count 142 MPV 9.6 Sodium Potassium Chloride Carbon Dioxide Anion Gap BUN Creatinine Creat Clearance w eGFR Random Glucose Calcium Total Bilirubin AST ALT Alkaline Phosphatase Total Protein Albumin Urine Color Ltyellow Urine Appearance Clear Urine pH 6.0 Ur Specific [place] 1.004 Urine Protein Negative Urine Glucose (UA) Negative Urine Ketones Negative Urine Blood Negative Urine Nitrite Negative Urine Bilirubin Negative Urine Urobilinogen Negative Ur Leukocyte Esterase Negative RPR Titer HIV 1&2 Antibody Screen Negative HIV P24 Antigen Negative 10/30/17 10/30/17 07:00 07:00 WBC RBC Hgb Hct MCV MCH MCHC RDW Plt Count MPV Sodium 142 Potassium 4.3 Chloride 99 Carbon Dioxide 35 H Anion Gap 8 BUN 12 Creatinine 0.5 L Creat Clearance w eGFR > 60 Random Glucose 97 Calcium 9.4 Total Bilirubin 1.3 H AST 101 H D ALT 162 H D Alkaline Phosphatase 181 H Total Protein 7.8 Albumin 3.7 Urine Color Urine Appearance Urine pH Ur Specific [place] Urine Protein Urine Glucose (UA) Urine Ketones Urine Blood Urine Nitrite Urine Bilirubin Urine Urobilinogen Ur Leukocyte Esterase RPR Titer Nonreactive HIV 1&2 Antibody Screen HIV P24 Antigen ELEVATED LIVER ENZYMES RESULT OF X-RAY RIGHT ANKLE/FOOT NO FRACTURE Assessment: 10/31/17 10:45 WITHDRAWAL SX Plan: CONTINUE DETOX REPEAT LIVER ENZYMES; INR ON 11/01/17
[2017-10-31] MEDS: TOLNAFTATE 1% CREAM 15 GM TUBE TP SCH ×2 (11:31→22:00)
[2017-10-31] MEDS: chlordiazePOXIDE 5 MG CAPSULE PO SCH ×2 (17:14→22:00)
[2017-10-31] MEDS: THIAMINE HCL 100 MG TABLET (FP) PO SCH (22:00)
[2017-10-31] MEDS: QUEtiapine FUMARATE 50 MG TABLET PO SCH (22:00)
[2017-11-01] MEDS ORDERED: METHADONE HCL 40 MG DISPERSABLE TABLET ONE (04:08)
[2017-11-01] MEDS ORDERED: METHADONE HCL 10 MG TABLET ONE (04:08)
[2017-11-01] MEDS: chlordiazePOXIDE 5 MG CAPSULE PO SCH ×2 (05:37→10:04)
[2017-11-01] MEDS: METHADONE 80 MG, METHADONE 20 MG PO SCH (05:38)
[2017-11-01] MEDS: AMOX TR/POT CLAV 875MG/125MG TABLETS (FP) PO SCH ×2 (08:18→17:35)
[2017-11-01] MEDS: BACITRACIN 0.9 GM PACKET TP SCH ×2 (10:04→22:03)
[2017-11-01] MEDS: NICOTINE 21 MG/24 HOURS TOPICAL PATCH TD SCH (10:04)
[2017-11-01] MEDS: TOLNAFTATE 1% CREAM 15 GM TUBE TP SCH ×2 (10:04→22:03)
[2017-11-01] MEDS: NIFEdipine E.R. 30 MG TABLET (FP) PO SCH (10:04)
[2017-11-01] MEDS: PRENATAL VITAMINS W/ FOLIC ACID TABLET (FP) PO SCH (10:04)
[2017-11-01] MEDS: hydrOXYzine PAMOATE 50 MG CAPSULE (FP) PO PRN ×3 (10:07→22:03)
--- NOTE | 2017-11-01 14:49 | PN ---
BHS Progress Note (SOAP) Subjective: Tremors, Diarrhea. Objective: PATIENT A & O X 3, OBSERVED AMBULATING ON UNIT. NO ACUTE DISTRESS. 11/01/17 14:47 Vital Signs Temperature 97.4 F L 11/01/17 14:15 Pulse Rate 84 11/01/17 14:15 Respiratory Rate 18 11/01/17 14:15 Blood Pressure 154/92 11/01/17 14:15 O2 Sat by Pulse Oximetry (%) Laboratory Tests 10/29/17 10/30/17 10/30/17 21:35 07:00 07:00 WBC 2.7 L RBC 3.73 L Hgb 11.4 L Hct 34.5 L MCV 92.5 MCH 30.7 MCHC 33.2 RDW 14.2 Plt Count 142 MPV 9.6 Sodium Potassium Chloride Carbon Dioxide Anion Gap BUN Creatinine Creat Clearance w eGFR Random Glucose Calcium Total Bilirubin AST ALT Alkaline Phosphatase Total Protein Albumin Urine Color Ltyellow Urine Appearance Clear Urine pH 6.0 Ur Specific [place] 1.004 Urine Protein Negative Urine Glucose (UA) Negative Urine Ketones Negative Urine Blood Negative Urine Nitrite Negative Urine Bilirubin Negative Urine Urobilinogen Negative Ur Leukocyte Esterase Negative RPR Titer HIV 1&2 Antibody Screen Negative HIV P24 Antigen Negative 10/30/17 10/30/17 07:00 07:00 WBC RBC Hgb Hct MCV MCH MCHC RDW Plt Count MPV Sodium 142 Potassium 4.3 Chloride 99 Carbon Dioxide 35 H Anion Gap 8 BUN 12 Creatinine 0.5 L Creat Clearance w eGFR > 60 Random Glucose 97 Calcium 9.4 Total Bilirubin 1.3 H AST 101 H D ALT 162 H D Alkaline Phosphatase 181 H Total Protein 7.8 Albumin 3.7 Urine Color Urine Appearance Urine pH Ur Specific [place] Urine Protein Urine Glucose (UA) Urine Ketones Urine Blood Urine Nitrite Urine Bilirubin Urine Urobilinogen Ur Leukocyte Esterase RPR Titer Nonreactive HIV 1&2 Antibody Screen HIV P24 Antigen LABS NOTED. Assessment: 11/01/17 14:47 WITHDRAWAL SYMPTOMS. LEUKOPENIA. ANEMIA. 11/01/17 14:49 Plan: CONTINUE DETOX. PRN IMMODIUM FOR DIARRHEA. INCREASE DAILY PO FLUID INTAKE. PATIENT SCHEDULED FOR D/C TOMORROW.
[2017-11-01] MEDS: chlordiazePOXIDE HCL 10 MG CAPSULE PO SCH ×2 (17:35→22:03)
[2017-11-01] MEDS: THIAMINE HCL 100 MG TABLET (FP) PO SCH (22:03)
[2017-11-01] MEDS: QUEtiapine FUMARATE 50 MG TABLET PO SCH (22:03)
[2017-11-02] MEDS ORDERED: METHADONE HCL 10 MG TABLET ONE (03:41)
[2017-11-02] MEDS ORDERED: METHADONE HCL 40 MG DISPERSABLE TABLET ONE (03:41)
[2017-11-02] MEDS: chlordiazePOXIDE HCL 10 MG CAPSULE PO SCH (05:57)
[2017-11-02] MEDS: METHADONE 80 MG, METHADONE 20 MG PO SCH (05:57)
[2017-11-02 06:26] VITALS: BP 126/82; PULSE 68; TEMP 97.1
[2017-11-02] MEDS: AMOX TR/POT CLAV 875MG/125MG TABLETS (FP) PO SCH (07:18)
--- NOTE | 2017-11-02 12:10 | DS ---
[facility] Detox Discharge Summary Admission Date: 10/29/17 Discharge Date: 11/02/17 - History Present History: Alcohol Dependence, MMTP Pertinent Past History: HTN Hepatitis C Seizure disorder - Physical Exam Results Vital Signs: Vital Signs Temperature 97.1 F L 11/02/17 06:25 Pulse Rate 68 11/02/17 06:25 Respiratory Rate 18 11/02/17 06:25 Blood Pressure 126/82 11/02/17 06:25 O2 Sat by Pulse Oximetry (%) Pertinent Admission Physical Exam Findings: Withdrawal symptoms Laboratory Tests 10/29/17 10/30/17 10/30/17 21:35 07:00 07:00 WBC 2.7 L RBC 3.73 L Hgb 11.4 L Hct 34.5 L MCV 92.5 MCH 30.7 MCHC 33.2 RDW 14.2 Plt Count 142 MPV 9.6 Sodium Potassium Chloride Carbon Dioxide Anion Gap BUN Creatinine Creat Clearance w eGFR Random Glucose Calcium Total Bilirubin AST ALT Alkaline Phosphatase Total Protein Albumin Urine Color Ltyellow Urine Appearance Clear Urine pH 6.0 Ur Specific [place] 1.004 Urine Protein Negative Urine Glucose (UA) Negative Urine Ketones Negative Urine Blood Negative Urine Nitrite Negative Urine Bilirubin Negative Urine Urobilinogen Negative Ur Leukocyte Esterase Negative RPR Titer HIV 1&2 Antibody Screen Negative HIV P24 Antigen Negative 10/30/17 10/30/17 07:00 07:00 WBC RBC Hgb Hct MCV MCH MCHC RDW Plt Count MPV Sodium 142 Potassium 4.3 Chloride 99 Carbon Dioxide 35 H Anion Gap 8 BUN 12 Creatinine 0.5 L Creat Clearance w eGFR > 60 Random Glucose 97 Calcium 9.4 Total Bilirubin 1.3 H AST 101 H D ALT 162 H D Alkaline Phosphatase 181 H Total Protein 7.8 Albumin 3.7 Urine Color Urine Appearance Urine pH Ur Specific [place] Urine Protein Urine Glucose (UA) Urine Ketones Urine Blood Urine Nitrite Urine Bilirubin Urine Urobilinogen Ur Leukocyte Esterase RPR Titer Nonreactive HIV 1&2 Antibody Screen HIV P24 Antigen Labs reviewed - Treatment Hospital Course: Detox Protocol Followed, Detoxed Safely, Responded well, Discharged Condition Good - Medication Discharge Medications: Ambulatory Orders Nifedipine [Procardia -] 30 mg PO DAILY #30 capsule 07/29/17 - Diagnosis (1) Alcohol dependence with uncomplicated withdrawal Status: Acute (2) HTN (hypertension) Status: Chronic Qualifiers: Hypertension type: essential hypertension Qualified Code(s): I10 - Essential (primary) hypertension (3) Hepatitis C Status: Chronic Qualifiers: Viral hepatitis chronicity: unspecified Hepatic coma status: without hepatic coma Qualified Code(s): B19.20 - Unspecified viral hepatitis C without hepatic coma (4) Methadone maintenance therapy patient Status: Chronic (5) Nicotine dependence Status: Chronic Qualifiers: Nicotine product type: cigarettes Substance use status: in withdrawal Qualified Code(s): F17.213 - Nicotine dependence, cigarettes, with withdrawal (6) Hx of seizure disorder Status: Chronic - AMA Did Patient Leave Against Medical Advice: No (F/U with PCP within 1-2 weeks)
== END 2017-11-02 09:02 | disposition home or self-care (01) | DRG 773 ==
LOC: YASAS 11:29 → Y3N 14:16
PROVIDERS: ADMIT Surgery; ATTEND Surgery
PROC: HZ2ZZZZ Detoxification Services for Substance Abuse Treatment (ICD-10-PCS; principal; 2017-10-29)
DX: F10.20 Alcohol dependence, uncomplicated (principal); F11.20 Opioid dependence, uncomplicated; F17.210 Nicotine dependence, cigarettes, uncomplicated; F41.9 Anxiety disorder, unspecified; F32.9 Major depressive disorder, single episode, unspecified; G47.00 Insomnia, unspecified; I10 Essential (primary) hypertension; B18.2 Chronic viral hepatitis C; M25.471 Effusion, right ankle; Z86.69 Personal history of other diseases of the nervous system and sense organs
CPT/HCPCS: 36415; 73610-TC-RT-FY; 73630-TC-RT-FY; 80053; 81003; 85027; 86593; 87389; 93005; 93010; J0735

== ENCOUNTER 2018-03-31 14:05 | Inpatient (IN) | payer OTHER ==
[2018-03-31 15:16] VITALS: BMI 24.3
--- NOTE | 2018-03-31 17:20 | HP ---
"CIWA Score Nausea/Vomitin-Cont. Nausea/Vomiting Muscle Tremors: 7-Severe,w/o Arm Extended Anxiety: 4-Mod. Anxious/Guarded Agitation: 4-Moderately Restless Paroxysmal Sweats: 4-Forehead w/Sweat Beads (Increased facial moisture) Orientation: 2-Disoriented Date<2 days Tacttile Disturbances: 0-None Auditory Disturbances: 0-None Visual Disturbances: 0-None Headache: 0-None Present CIWA-Ar Total Score: 28 - Admission Criteria [facility]ASAS Guidelines: Admission for Medically Managed Detox: Requires at least one of the followin. CIWA greater than 12 2. Seizures within the past 24 hours 3. Delirium tremens within the past 24 hours 4. Hallucinations within the past 24 hours 5. Acute intervention needed for co occurring medical disorder 6. Acute intervention needed for co occurring psychiatric disorder 7. Severe withdrawal that cannot be handled at a lower level of care (continued vomiting, continued diarrhea, abnormal vital signs) requiring intravenous medication and/or fluids 8. Patient presents the following: CIWA greater than 12 Admission Criteria Met: Admission criteria met Admission ROS [facility] Chief Complaint: Having alcohol withdrawal. Allergies/Adverse Reactions: Allergies Allergy/AdvReac Type Severity Reaction Status Date / Time No Known Allergies Allergy Verified 03/31/18 18:02 History of Present Illness: Here for alcohol detox. [facility] MMTP. States current methadone dose is 100 mg and was last medicated in [facility] clinic today. Alcohol use began at age 14. Heroin use began at age 16. Now on MMTP. Nicotine use began at age 13. States has been decreasing use. Longest hx sobriety 2 months. Last seizures 3 years ago. Last blackout 3 months ago. Last overdose 6 months ago (heroin/alcohol combo). Hx: HTN - non-compliant with medications. States hx acid reflux - tx'd in past w/ Zantac. Patient encouraged to consider AA. Search Terms: Luiselise Moraesnavi, 1980 Search Date: 03/31/2018 05:20:01 PM The Drug Utilization Report below displays all of the controlled substance prescriptions, if any, that your patient has filled in the last twelve months. The information displayed on this report is compiled from pharmacy submissions to the Department, and accurately reflects the information as submitted by the pharmacies. This report was requested by: Wanda Montesinos | Reference #: [id number] Others' Prescriptions Patient Name: Sri Brown Date: 1980 Address: [address] [facility] [place] [address] Sex: Male Rx Written Rx Dispensed Drug Quantity Days Supply Prescriber Name 01/06/2018 01/07/2018 lorazepam 2 mg tablet 8 2 CaroleSilver anderson Patient Name: Sri Brown Date: 1980 Address: [address] [place] [address] [place] [address] Sex: Male Rx Written Rx Dispensed Drug Quantity Days Supply Prescriber Name 10/20/2017 10/20/2017 lorazepam 1 mg tablet 8 2 Phong Herrera ([place]) 09/04/2017 09/05/2017 lorazepam 2 mg tablet 8 2 Silver Vasquez 08/17/2017 08/19/2017 chlordiazepoxide 25 mg capsule 8 2 Phong Herrera ( JORGE) Exam Limitations: No Limitations - Ebola screening Have you traveled outside of the country in the last 21 days: No Have you had contact with anyone from an Ebola affected area: No Have you been sick,other than usual withdrawal symptoms: No Do you have a fever: No - Review of Systems Constitutional: Diaphoresis, Changes in sleep (Difficulty falling and staying asleep.) EENT: reports: Blurred Vision, Dental Problems (Missing teeth. Denies pain.) Respiratory: reports: No Symptoms reported Cardiac: reports: No Symptoms Reported GI: reports: Nausea, Vomiting, Indigestion (Hx acid reflux - rx in past w/ Zantac) : reports: No Symptoms Reported Musculoskeletal: reports: Back Pain (Occ back pain when wakes in am) Integumentary: reports: No Symptoms Reported Neuro: reports: Tremors Endocrine: reports: No Symptoms Reported Hematology: reports: No Symptoms Reported Psychiatric: reports: Judgement Intact, Agitated, Anxious, Depressed (Denies thoughts of harming self or others), Disorientated (Knows month and year. Unsure about day of week or date) Patient History - Patient Medical History Hx Anemia: No Hx Asthma: No Hx Chronic Obstructive Pulmonary Disease (COPD): No Hx Cancer: No Hx Cardiac Disorders: No Hx Congestive Heart Failure: No Hx Hypertension: Yes (B/P=194/112 non compliance) Hx Hypercholesterolemia: No Hx Pacemaker: No HX Cerebrovascular Accident: No Hx Seizures: Yes (WITHDRAWAL SEIZURES - LAST EPISODE WAS 3 yrs ago) Hx Dementia: No Hx Diabetes: No Hx Gastrointestinal Disorders: No Hx Liver Disease: Yes (hep c +) Hx Genitourinary Disorders: No Hx Sexually Transmitted Disorders: No Hx Renal Disease (ESRD): No Hx Thyroid Disease: No Hx Human Immunodeficiency Virus (HIV): No (last 2017 negative) Hx Hepatitis C: Yes (NO TXMENT) Hx Depression: Yes Hx Suicide Attempt: No Hx Bipolar Disorder: Yes (AND ANXIETY DISORDER) Hx Schizophrenia: No - Patient Surgical History Past Surgical History: Yes Hx Neurologic Surgery: No Hx Cataract Extraction: No Hx Cardiac Surgery: No Hx Lung Surgery: No Hx Breast Surgery: No Hx Breast Biopsy: No Hx Abdominal Surgery: Yes (08/03/11-s/p cholecystectomy) Hx Appendectomy: No Hx Cholecystectomy: No Hx Genitourinary Surgery: Yes (kidney stone removal) Hx Section: No Hx Orthopedic Surgery: No Hx Hysterectomy: No Anesthesia Reaction: No - PPD History Previous Implant?: Yes Documented Results: Positive w/proof Implanted On Prior [facility] [place] Admission?: Yes Date: 02/20/17 Results: 0 mm PPD to be Administered?: Yes - Smoking Cessation Smoking history: Current some day smoker Have you smoked in the past 12 months: Yes Aproximately how many cigarettes per day: 1 Cigars Per Day: 0 Hx Chewing Tobacco Use: No Initiated information on smoking cessation: Yes 'Breaking Loose' booklet given: 03/31/18 - Substance & Tx. History Hx Alcohol Use: Yes Hx Substance Use: Yes Substance Use Type: Alcohol Hx Substance Use Treatment: Yes (detox, rehab) - Substances Abused Alcohol Route: Oral Frequency: Daily Amount used: 1 case of beer/ 1 -2 pints vodka Age of first use: 14 Date of Last Use: 03/31/18 Family Disease History - Family Disease History Family Disease History: Other: Grandparent (GF WAS ETOH DEPENDENT AND ), Mother (HX/O SEIZURE, DM) Admission Physical Exam [facility] - Vital Signs Vital Signs: Vital Signs - 24 hr 03/31/18 15:14 Temperature 97.8 F Pulse Rate 86 Respiratory 18 Rate Blood Pressure 194/112 H - Physical General Appearance: Yes: Disheveled, Moderate Distress, Alcohol on Breath, Tremorous, Irritable, Sweating, Anxious HEENTM: Yes: EOMI, Hearing grossly Normal, Normocephalic, Normal Voice, IVAN ( Pupils = 8 mm), Pharynx Normal Respiratory: Yes: Lungs Clear, Normal Breath Sounds, No Respiratory Distress Neck: Yes: No masses,lesions,Nodules, Supple Breast: Yes: Breast Exam Deferred Cardiology: Yes: Regular Rhythm, Regular Rate, S1, S2 Abdominal: Yes: Non Tender, Flat, Soft, Increased Bowel Sounds Genitourinary: Yes: Within Normal Limits Back: Yes: Normal Inspection Musculoskeletal: Yes: full range of Motion, Gait Steady Extremities: Yes: Normal Capillary Refill, Normal Range of Motion, Tremors ( Gross tremors at rest) Neurological: Yes: director of community services II-XII NML intact, Alert, Motor Strength 5/5, Normal Response Integumentary: Yes: Warm, Diaphoresis Lymphatic: Yes: Within Normal Limits - Diagnostic (1) Alcohol dependence with uncomplicated withdrawal Current Visit: Yes Status: Acute (2) HTN (hypertension) Current Visit: Yes Status: Chronic Qualifiers: Hypertension type: essential hypertension Qualified Code(s): I10 - Essential (primary) hypertension (3) Methadone maintenance therapy patient Current Visit: Yes Status: Chronic Comment: [facility] MMTP. (4) Nicotine dependence Current Visit: Yes Status: Chronic Qualifiers: Nicotine product type: cigarettes Substance use status: uncomplicated Qualified Code(s): F17.210 - Nicotine dependence, cigarettes, uncomplicated Comment: Is down to 1-2 cigarettes per day (5) Acid reflux Current Visit: Yes Status: Chronic Qualifiers: Esophagitis presence: without esophagitis Qualified Code(s): K21.9 - Gastro -esophageal reflux disease without esophagitis Cleared for Admission [facility] - Detox or Rehab [facility] Level of Care: Medically Managed Detox Regimen/Protocol: Librium [facility] Breath Alcohol Content Breath Alcohol Content: 0.140 Urine Drug Screen - Results Drug Screen Negative: No Urine Drug Screen Results: MTD-Methadone"
[2018-03-31] MEDS ORDERED: P-EPHED 60MG/TRIPROLIDI 2.5MG TABLET PO PRN (17:45)
[2018-03-31] MEDS ORDERED: MAGNESIUM HYDROX 2400MG/30ML ORAL SUSPENSION 30 ML CUP PO PRN (17:45)
[2018-03-31] MEDS ORDERED: MAGNESIUM CITRATE 300 ML BOTTLE PO PRN (17:45)
[2018-03-31] MEDS ORDERED: MENTHOL/PHENOL 1 EACH UD MM PRN (17:45)
[2018-03-31] MEDS ORDERED: NICOTINE POLACRILEX 2 MG GUM BC PRN (17:45)
[2018-03-31] MEDS ORDERED: MAG HYDROX/AL HYDROX/SIMETH 30 ML UNIT-DOSE CUP PO PRN (17:45)
[2018-03-31] MEDS ORDERED: ACETAMINOPHEN 325 MG TABLET (FP) PO PRN (17:45)
[2018-03-31] MEDS ORDERED: IBUPROFEN 400 MG TABLET (FP) PO PRN (17:45)
[2018-03-31] MEDS ORDERED: LOPERAMIDE HCL 2 MG CAPSULE PO PRN (17:45)
[2018-03-31] MEDS ORDERED: chlordiazePOXIDE HCL 25 MG CAPSULE PO ONE (18:45)
[2018-03-31] MEDS ORDERED: cloNIDine HCL 0.1 MG TABLET PO ONE (20:22)
[2018-03-31] MEDS ORDERED: guaiFENesin 200 MG/10 ML 10 ML UNIT-DOSE CUPS PO PRN (20:24)
[2018-03-31] MEDS: chlordiazePOXIDE HCL 25 MG CAPSULE PO PRN (20:31)
[2018-03-31] MEDS: THIAMINE HCL 100 MG TABLET (FP) PO SCH (22:23)
[2018-03-31] MEDS: chlordiazePOXIDE HCL 25 MG CAPSULE PO SCH (22:24)
[2018-04-01] MEDS: chlordiazePOXIDE HCL 25 MG CAPSULE PO PRN (02:41)
[2018-04-01] MEDS: chlordiazePOXIDE HCL 25 MG CAPSULE PO SCH ×2 (06:11→10:05)
[2018-04-01] MEDS ORDERED: cloNIDine HCL 0.1 MG TABLET PO ONE (07:15)
[2018-04-01] MEDS ORDERED: METHADONE HCL 10 MG TABLET PO SCH (07:45)
[2018-04-01] MEDS ORDERED: METHADONE HCL 40 MG DISPERSABLE TABLET ONE (09:05)
[2018-04-01] MEDS ORDERED: METHADONE HCL 10 MG TABLET ONE (09:05)
[2018-04-01] MEDS: METHADONE 80 MG, METHADONE 20 MG PO SCH (09:11)
[2018-04-01] MEDS: RANITIDINE HCL 150 MG TABLET (FP) PO SCH (09:12)
[2018-04-01] MEDS: PRENATAL VITAMINS W/ FOLIC ACID TABLET (FP) PO SCH (09:12)
[2018-04-01 10:29] LABS: HEMATOCRIT 39.4 % (35.4-49); HEMOGLOBIN 13.2 GM/dL (11.7-16.9); MCH 32.6 pg (25.7-33.7); MCHC 33.6 g/dl (32.0-35.9); MEAN CELL VOLUME 97.1 fl (80-96); MEAN PLT VOLUME 10.3 fl (7.5-11.1); PLATELET COUNT 121 K/MM3 (134-434); RBC 4.06 M/mm3 (4.00-5.60); RDW 14.4 % (11.9-15.9)
[2018-04-01 10:31] LABS: ALBUMIN 4.3 g/dl (3.4-5.0); ALK PHOS 144 U/L (45-117); ANION GAP 9 MMOL/L (8-16); BILIRUBIN,TOTAL 2.8 mg/dL (0.2-1); BLOOD UREA NITROGEN 11 mg/dL (7-18); CALCIUM 9.6 mg/dL (8.5-10.1); CHLORIDE 95 mmol/L (98-107); CO2 35 mmol/L (21-32); CREATININE 0.6 mg/dL (0.55-1.3); GLUCOSE,RANDOM 97 mg/dL (74-106); POTASSIUM 3.5 mmol/L (3.5-5.1); SGOT/AST 138 U/L (15-37); SGPT/ALT 123 U/L (13-61); SODIUM 138 mmol/L (136-145); TOT PROT 8.8 g/dl (6.4-8.2)
[2018-04-01 13:29] LABS: URINE APPEARANCE CLEAR; URINE BILIRUBIN NEGATIVE (<2.0 mg/dL); URINE COLOR AMBER; URINE GLUCOSE (UA) NEGATIVE (NEGATIVE); URINE KETONE NEGATIVE (NEGATIVE); URINE LEUK ESTERASE NEGATIVE (NEGATIVE); URINE NITRITE NEGATIVE (NEGATIVE); URINE PROTEIN 2+ (NEGATIVE); URINE UROBILINOGEN 4.0 E.U/dl mg/dL (0.2-1.0)
[2018-04-01 13:48] LABS: EPI CELLS RARE /HPF (FEW); URINE HYALINE CAST 6 /lpf; URINE MUCUS RARE
--- NOTE | 2018-04-01 14:16 | PN ---
[facility] CIWA - CIWA Score Nausea/Vomitin-Mild Nausea/No Vomiting Muscle Tremors: 4-Moderate,w/Arms Extend Anxiety: 4-Mod. Anxious/Guarded Agitation: 4-Moderately Restless Paroxysmal Sweats: 1-Minimal Palms Moist Orientation: 1-Uncertain about Date Tacttile Disturbances: 1-Very Mild Itch/Numbness Auditory Disturbances: 1-Very Mild Visual Disturbances: 0-None Headache: 2-Mild CIWA-Ar Total Score: 19 S Progress Note (SOAP) Subjective: tremor headache sweating admitted none adherence with antihypertensants strong recommend that the patient visit urgent care or mini clinic for hypertension management discuss negative consequences of alcohol misuse and uncontrolled bp Objective: 04/01/18 14:27 Vital Signs Temperature 98.4 F 04/01/18 13:12 Pulse Rate 84 04/01/18 13:12 Respiratory Rate 18 04/01/18 13:12 Blood Pressure 157/98 04/01/18 13:12 O2 Sat by Pulse Oximetry (%) Laboratory Last Values WBC 3.0 K/mm3 (4.0-10.0) L 04/01/18 07:00 RBC 4.06 M/mm3 (4.00-5.60) 04/01/18 07:00 Hgb 13.2 GM/dL (11.7-16.9) 04/01/18 07:00 Hct 39.4 % (35.4-49) 04/01/18 07:00 MCV 97.1 fl (80-96) H 04/01/18 07:00 MCH 32.6 pg (25.7-33.7) 04/01/18 07:00 MCHC 33.6 g/dl (32.0-35.9) 04/01/18 07:00 RDW 14.4 % (11.9-15.9) 04/01/18 07:00 Plt Count 121 K/MM3 (134-434) L 04/01/18 07:00 MPV 10.3 fl (7.5-11.1) 04/01/18 07:00 Sodium 138 mmol/L (136-145) 04/01/18 07:00 Potassium 3.5 mmol/L (3.5-5.1) 04/01/18 07:00 Chloride 95 mmol/L (98-107) L 04/01/18 07:00 Carbon Dioxide 35 mmol/L (21-32) H 04/01/18 07:00 Anion Gap 9 MMOL/L (8-16) 04/01/18 07:00 BUN 11 mg/dL (7-18) 04/01/18 07:00 Creatinine 0.6 mg/dL (0.55-1.3) 04/01/18 07:00 Creat Clearance w eGFR > 60 (>60) 04/01/18 07:00 Random Glucose 97 mg/dL (74-106) 04/01/18 07:00 Calcium 9.6 mg/dL (8.5-10.1) 04/01/18 07:00 Total Bilirubin 2.8 mg/dL (0.2-1) H 04/01/18 07:00 AST 138 U/L (15-37) H 04/01/18 07:00 ALT 123 U/L (13-61) H 04/01/18 07:00 Alkaline Phosphatase 144 U/L (45-117) H 04/01/18 07:00 Total Protein 8.8 g/dl (6.4-8.2) H 04/01/18 07:00 Albumin 4.3 g/dl (3.4-5.0) 04/01/18 07:00 Urine Color Radha 04/01/18 10:30 Urine Appearance Clear 04/01/18 10:30 Urine pH 6.0 (5.0-8.0) 04/01/18 10:30 Ur Specific [place] 1.017 (1.010-1.035) 04/01/18 10:30 Urine Protein 2+ (NEGATIVE) H 04/01/18 10:30 Urine Glucose (UA) Negative (NEGATIVE) 04/01/18 10:30 Urine Ketones Negative (NEGATIVE) 04/01/18 10:30 Urine Blood Negative (NEGATIVE) 04/01/18 10:30 Urine Nitrite Negative (NEGATIVE) 04/01/18 10:30 Urine Bilirubin Negative (<2.0 mg/dL) 04/01/18 10:30 Urine Urobilinogen 4.0 e.u/dl mg/dL (0.2-1.0) 04/01/18 10:30 Ur Leukocyte Esterase Negative (NEGATIVE) 04/01/18 10:30 Urine WBC (Auto) 1 /hpf (3-5) 04/01/18 10:30 Urine RBC (Auto) <1 /hpf (0-3) 04/01/18 10:30 Ur Epithelial Cells Rare /HPF (FEW) 04/01/18 10:30 Hyaline Casts 6 /lpf 04/01/18 10:30 Urine Mucus Rare 04/01/18 10:30 RPR Titer Nonreactive (NONREACTIVE) 04/01/18 07:00 lab noted 04/01/18 14:54 discontinue librium begin ativan protocol detox for alcohol Assessment: 04/01/18 14:55 withdrawal sx Plan: continue detox
[2018-04-01] MEDS: NIFEdipine E.R 60 MG TABLET (UD) PO SCH (14:51)
[2018-04-01] MEDS ORDERED: LORazepam 1 MG TABLET PO PRN (14:51)
[2018-04-01] MEDS: LORazepam 2 MG TABLET PO SCH ×2 (17:27→23:06)
[2018-04-01] MEDS ORDERED: chlordiazePOXIDE HCL 25 MG CAPSULE PO SCH (23:00)
[2018-04-01] MEDS: MELATONIN 5 MG TABLETS PO PRN (23:05)
[2018-04-01] MEDS: LISINOPRIL 20 MG TABLET (FP) PO SCH (23:07)
[2018-04-01] MEDS: THIAMINE HCL 100 MG TABLET (FP) PO SCH (23:09)
[2018-04-02] MEDS ORDERED: METHADONE HCL 10 MG TABLET ONE (04:52)
[2018-04-02] MEDS ORDERED: METHADONE HCL 40 MG DISPERSABLE TABLET ONE (04:52)
[2018-04-02] MEDS: METHADONE 80 MG, METHADONE 20 MG PO SCH (05:47)
[2018-04-02] MEDS: LORazepam 1 MG TABLET PO SCH ×4 (05:47→23:04)
[2018-04-02] MEDS: LISINOPRIL 20 MG TABLET (FP) PO SCH ×2 (10:22→21:47)
[2018-04-02] MEDS: RANITIDINE HCL 150 MG TABLET (FP) PO SCH (10:22)
[2018-04-02] MEDS: PRENATAL VITAMINS W/ FOLIC ACID TABLET (FP) PO SCH (10:22)
[2018-04-02] MEDS: NIFEdipine E.R 60 MG TABLET (UD) PO SCH (10:22)
--- NOTE | 2018-04-02 15:00 | PN ---
[facility] CIWA - CIWA Score Nausea/Vomitin-No Nausea/No Vomiting Muscle Tremors: 4-Moderate,w/Arms Extend Anxiety: 0-No Anxiety, at Ease Agitation: 0-Normal Activity Paroxysmal Sweats: 3 Orientation: 2-Disoriented Date<2 days Tacttile Disturbances: 2-Mild Itch/Numbness/Burn Auditory Disturbances: 2-Mild Harshness/Frighten Visual Disturbances: 0-None Headache: 0-None Present CIWA-Ar Total Score: 13 S Progress Note (SOAP) Subjective: Interrupted Sleep, Tremors, Stomach Cramping, Sweating, Anxious, Body Aches. Objective: PATIENT A & O X 2 (UNCERTAIN ABOUT CURRENT DAY / DATE). PATIENT OBSERVED AMBULATING ON UNIT. IN NO ACUTE DISTRESS. 04/02/18 15:02 Vital Signs Temperature 98.3 F 04/02/18 13:20 Pulse Rate 75 04/02/18 13:20 Respiratory Rate 16 04/02/18 13:20 Blood Pressure 117/77 04/02/18 13:20 O2 Sat by Pulse Oximetry (%) Laboratory Tests 04/01/18 04/01/18 04/01/18 07:00 07:00 07:00 WBC 3.0 L RBC 4.06 Hgb 13.2 Hct 39.4 MCV 97.1 H MCH 32.6 MCHC 33.6 RDW 14.4 Plt Count 121 L MPV 10.3 Sodium 138 Potassium 3.5 Chloride 95 L Carbon Dioxide 35 H Anion Gap 9 BUN 11 Creatinine 0.6 Creat Clearance w eGFR > 60 Random Glucose 97 Calcium 9.6 Total Bilirubin 2.8 H AST 138 H ALT 123 H Alkaline Phosphatase 144 H Total Protein 8.8 H Albumin 4.3 Urine Color Urine Appearance Urine pH Ur Specific [place] Urine Protein Urine Glucose (UA) Urine Ketones Urine Blood Urine Nitrite Urine Bilirubin Urine Urobilinogen Ur Leukocyte Esterase Urine WBC (Auto) Urine RBC (Auto) Ur Epithelial Cells Hyaline Casts Urine Mucus RPR Titer Nonreactive 04/01/18 10:30 WBC RBC Hgb Hct MCV MCH MCHC RDW Plt Count MPV Sodium Potassium Chloride Carbon Dioxide Anion Gap BUN Creatinine Creat Clearance w eGFR Random Glucose Calcium Total Bilirubin AST ALT Alkaline Phosphatase Total Protein Albumin Urine Color Radha Urine Appearance Clear Urine pH 6.0 Ur Specific [place] 1.017 Urine Protein 2+ H Urine Glucose (UA) Negative Urine Ketones Negative Urine Blood Negative Urine Nitrite Negative Urine Bilirubin Negative Urine Urobilinogen 4.0 e.u/dl Ur Leukocyte Esterase Negative Urine WBC (Auto) 1 Urine RBC (Auto) <1 Ur Epithelial Cells Rare Hyaline Casts 6 Urine Mucus Rare RPR Titer LABS NOTED. Assessment: 04/02/18 15:03 WITHDRAWAL SYMPTOMS. ANEMIA. LEUKOPENIA. Plan: CONTINUE DETOX.
[2018-04-02] MEDS: THIAMINE HCL 100 MG TABLET (FP) PO SCH (21:47)
[2018-04-02] MEDS ORDERED: chlordiazePOXIDE 5 MG CAPSULE PO SCH (23:00)
[2018-04-02] MEDS: MELATONIN 5 MG TABLETS PO PRN (23:00)
[2018-04-03] MEDS ORDERED: METHADONE HCL 10 MG TABLET ONE (04:14)
[2018-04-03] MEDS ORDERED: METHADONE HCL 40 MG DISPERSABLE TABLET ONE (04:14)
[2018-04-03] MEDS: METHADONE 80 MG, METHADONE 20 MG PO SCH (05:37)
[2018-04-03] MEDS: LORazepam 1 MG TABLET PO SCH (05:37)
[2018-04-03] MEDS ORDERED: LORazepam 1 MG TABLET PO SCH (06:00)
[2018-04-03 06:15] VITALS: BP 123/68; PULSE 75; TEMP 97.5
--- NOTE | 2018-04-03 07:15 | DS ---
[facility] Detox Discharge Summary Admission Date: 03/31/18 Discharge Date: 04/03/18 - History Additional Comments: Patient is leaving against medical advice.He is detoxing from alcohol and is also on a MMTP receiving a prescribed dose daily. Patient requested to be discharged but was encouraged to stay and complete detox. He appears very anxious but is alert and oriented to person, place and time. He is medically stable at this time. Risks and consequences of his action reinforced. Patient signed the AMA form. - Physical Exam Results Vital Signs: Vital Signs Temperature 97.5 F L 04/03/18 06:15 Pulse Rate 75 04/03/18 06:15 Respiratory Rate 18 04/03/18 06:15 Blood Pressure 123/68 04/03/18 06:15 O2 Sat by Pulse Oximetry (%) Laboratory Last Values WBC 3.0 K/mm3 (4.0-10.0) L 04/01/18 07:00 RBC 4.06 M/mm3 (4.00-5.60) 04/01/18 07:00 Hgb 13.2 GM/dL (11.7-16.9) 04/01/18 07:00 Hct 39.4 % (35.4-49) 04/01/18 07:00 MCV 97.1 fl (80-96) H 04/01/18 07:00 MCH 32.6 pg (25.7-33.7) 04/01/18 07:00 MCHC 33.6 g/dl (32.0-35.9) 04/01/18 07:00 RDW 14.4 % (11.9-15.9) 04/01/18 07:00 Plt Count 121 K/MM3 (134-434) L 04/01/18 07:00 MPV 10.3 fl (7.5-11.1) 04/01/18 07:00 Sodium 138 mmol/L (136-145) 04/01/18 07:00 Potassium 3.5 mmol/L (3.5-5.1) 04/01/18 07:00 Chloride 95 mmol/L (98-107) L 04/01/18 07:00 Carbon Dioxide 35 mmol/L (21-32) H 04/01/18 07:00 Anion Gap 9 MMOL/L (8-16) 04/01/18 07:00 BUN 11 mg/dL (7-18) 04/01/18 07:00 Creatinine 0.6 mg/dL (0.55-1.3) 04/01/18 07:00 Creat Clearance w eGFR > 60 (>60) 04/01/18 07:00 Random Glucose 97 mg/dL (74-106) 04/01/18 07:00 Calcium 9.6 mg/dL (8.5-10.1) 04/01/18 07:00 Total Bilirubin 2.8 mg/dL (0.2-1) H 04/01/18 07:00 AST 138 U/L (15-37) H 04/01/18 07:00 ALT 123 U/L (13-61) H 04/01/18 07:00 Alkaline Phosphatase 144 U/L (45-117) H 04/01/18 07:00 Total Protein 8.8 g/dl (6.4-8.2) H 04/01/18 07:00 Albumin 4.3 g/dl (3.4-5.0) 04/01/18 07:00 Urine Color Radha 04/01/18 10:30 Urine Appearance Clear 04/01/18 10:30 Urine pH 6.0 (5.0-8.0) 04/01/18 10:30 Ur Specific [place] 1.017 (1.010-1.035) 04/01/18 10:30 Urine Protein 2+ (NEGATIVE) H 04/01/18 10:30 Urine Glucose (UA) Negative (NEGATIVE) 04/01/18 10:30 Urine Ketones Negative (NEGATIVE) 04/01/18 10:30 Urine Blood Negative (NEGATIVE) 04/01/18 10:30 Urine Nitrite Negative (NEGATIVE) 04/01/18 10:30 Urine Bilirubin Negative (<2.0 mg/dL) 04/01/18 10:30 Urine Urobilinogen 4.0 e.u/dl mg/dL (0.2-1.0) 04/01/18 10:30 Ur Leukocyte Esterase Negative (NEGATIVE) 04/01/18 10:30 Urine WBC (Auto) 1 /hpf (3-5) 04/01/18 10:30 Urine RBC (Auto) <1 /hpf (0-3) 04/01/18 10:30 Ur Epithelial Cells Rare /HPF (FEW) 04/01/18 10:30 Hyaline Casts 6 /lpf 04/01/18 10:30 Urine Mucus Rare 04/01/18 10:30 RPR Titer Nonreactive (NONREACTIVE) 04/01/18 07:00 Pertinent Admission Physical Exam Findings: Withdrawal symptoms - Medication Discharge Medications: Ambulatory Orders Lisinopril [Prinivil] 20 mg PO BID 04/01/18 Nifedipine 10 mg PO 04/01/18 Nifedipine [Nifedipine ER] 60 mg PO DAILY 04/01/18 - Diagnosis (1) Alcohol dependence with uncomplicated withdrawal Current Visit: Yes Status: Acute (2) Acid reflux Current Visit: Yes Status: Chronic Qualifiers: Esophagitis presence: without esophagitis Qualified Code(s): K21.9 - Gastro -esophageal reflux disease without esophagitis (3) HTN (hypertension) Current Visit: Yes Status: Chronic Qualifiers: Hypertension type: essential hypertension Qualified Code(s): I10 - Essential (primary) hypertension (4) Methadone maintenance therapy patient Current Visit: Yes Status: Chronic (5) Nicotine dependence Current Visit: Yes Status: Chronic Qualifiers: Nicotine product type: cigarettes Substance use status: uncomplicated Qualified Code(s): F17.210 - Nicotine dependence, cigarettes, uncomplicated (6) Anxiety Current Visit: No Status: Acute (7) Benzodiazepine dependence Current Visit: No Status: Acute (8) Cocaine dependence Current Visit: No Status: Acute Qualifiers: Substance use status: uncomplicated Qualified Code(s): F14.20 - Cocaine dependence, uncomplicated (9) Hepatitis C Current Visit: No Status: Chronic Qualifiers: Viral hepatitis chronicity: unspecified Hepatic coma status: without hepatic coma Qualified Code(s): B19.20 - Unspecified viral hepatitis C without hepatic coma (10) Hx of seizure disorder Current Visit: No Status: Chronic (11) Sedative, hypnotic or anxiolytic dependence with withdrawal, uncomplicated Current Visit: No Status: Chronic - AMA Did Patient Leave Against Medical Advice: Yes
[2018-04-03] MEDS ORDERED: chlordiazePOXIDE HCL 10 MG CAPSULE PO SCH (23:00)
[2018-04-04] MEDS ORDERED: LORazepam 2 MG TABLET PO ONE (06:00)
== END 2018-04-03 07:05 | disposition left against medical advice (07) | DRG 770 ==
LOC: YASAS 14:05 → Y3N 18:23
PROVIDERS: ADMIT Neuromusculoskeletal Medicine & OMM; ATTEND Neuromusculoskeletal Medicine & OMM
PROC: HZ2ZZZZ Detoxification Services for Substance Abuse Treatment (ICD-10-PCS; principal; 2018-03-31)
DX: F10.230 Alcohol dependence with withdrawal, uncomplicated (principal); F13.230 Sedative, hypnotic or anxiolytic dependence with withdrawal, uncomplicated; F14.20 Cocaine dependence, uncomplicated; F11.20 Opioid dependence, uncomplicated; F17.210 Nicotine dependence, cigarettes, uncomplicated; F31.9 Bipolar disorder, unspecified; F41.9 Anxiety disorder, unspecified; D64.9 Anemia, unspecified; D72.819 Decreased white blood cell count, unspecified; I10 Essential (primary) hypertension; K21.9 Gastro-esophageal reflux disease without esophagitis; B18.2 Chronic viral hepatitis C; Z86.69 Personal history of other diseases of the nervous system and sense organs
CPT/HCPCS: 36415; 80053; 81003; 81015; 85027; 86593; J0735

== ENCOUNTER 2018-07-06 18:57 | Inpatient (IN) | payer OTHER ==
[2018-07-06 22:37] VITALS: BMI 23.6
--- NOTE | 2018-07-06 22:50 | HP ---
CIWA Score Nausea/Vomitin Muscle Tremors: 4-Moderate,w/Arms Extend Anxiety: 3 Agitation: 2 Paroxysmal Sweats: 2 Orientation: 0-Oriented Tacttile Disturbances: 2-Mild Itch/Numbness/Burn Auditory Disturbances: 2-Mild Harshness/Frighten Visual Disturbances: 2-Mild Sensitivity Headache: 2-Mild CIWA-Ar Total Score: 22 - Admission Criteria OASAS Guidelines: Admission for Medically Managed Detox: Requires at least one of the followin. CIWA greater than 12 2. Seizures within the past 24 hours 3. Delirium tremens within the past 24 hours 4. Hallucinations within the past 24 hours 5. Acute intervention needed for co occurring medical disorder 6. Acute intervention needed for co occurring psychiatric disorder 7. Severe withdrawal that cannot be handled at a lower level of care (continued vomiting, continued diarrhea, abnormal vital signs) requiring intravenous medication and/or fluids 8. Admission ROS [facility] - HPI Chief Complaint: DEPENDENT ON ETOH ONLY ON 100 MGS. OF MMTP - LAST DOSE THIS AM Allergies/Adverse Reactions: Allergies Allergy/AdvReac Type Severity Reaction Status Date / Time No Known Allergies Allergy Verified 07/06/18 22:26 History of Present Illness: THE PT. IS REQUESTING ADMISSION TO THE DETOX UNIT AND CAME FOR MEDICAL CLEARANCE AND H AND PE - Ebola screening Have you traveled outside of the country in the last 21 days: No (N) Have you had contact with anyone from an Ebola affected area: No Have you been sick,other than usual withdrawal symptoms: No Do you have a fever: No - Review of Systems Constitutional: See HPI, Loss of Appetite, Malaise, Weakness, Unintentional Wgt. Loss EENT: reports: See HPI Respiratory: reports: See HPI Cardiac: reports: See HPI, Syncope GI: reports: See HPI, Nausea, Poor Appetite, Poor Fluid Intake, Vomiting, Abdominal cramping : reports: See HPI Musculoskeletal: reports: See HPI, Muscle Pain, Muscle Weakness Integumentary: reports: See HPI, Erythema, Flushing, Sweating Neuro: reports: See HPI, Headache, Tremors, Weakness, Unsteady Gait Hematology: reports: See HPI Psychiatric: reports: Judgement Intact, Orientated x3, Anxious, Depressed Patient History - Patient Medical History Hx Anemia: No Hx Asthma: No Hx Chronic Obstructive Pulmonary Disease (COPD): No Hx Cancer: No Hx Cardiac Disorders: No Hx Congestive Heart Failure: No Hx Hypertension: Yes (B/P=194/112 non compliance) Hx Hypercholesterolemia: No Hx Pacemaker: No HX Cerebrovascular Accident: No Hx Seizures: Yes (WITHDRAWAL SEIZURES - LAST EPISODE WAS 3 yrs ago) Hx Dementia: No Hx Diabetes: No Hx Gastrointestinal Disorders: No Hx Liver Disease: Yes (hep c +) Hx Genitourinary Disorders: No Hx Sexually Transmitted Disorders: No Hx Renal Disease (ESRD): No Hx Thyroid Disease: No Hx Human Immunodeficiency Virus (HIV): No (last 2016 negative) Hx Hepatitis C: Yes (NO TXMENT) Hx Suicide Attempt: No Hx Bipolar Disorder: Yes (AND ANXIETY DISORDER) Hx Schizophrenia: No - Patient Surgical History Past Surgical History: Yes Hx Neurologic Surgery: No Hx Cataract Extraction: No Hx Cardiac Surgery: No Hx Lung Surgery: No Hx Breast Surgery: No Hx Breast Biopsy: No Hx Abdominal Surgery: Yes (08/03/11-s/p cholecystectomy) Hx Appendectomy: No Hx Cholecystectomy: No Hx Genitourinary Surgery: Yes (kidney stone removal) Hx Section: No Hx Orthopedic Surgery: No Hx Hysterectomy: No Anesthesia Reaction: No - PPD History Date: 04/02/18 Results: 0 mm - Smoking Cessation Smoking history: Current some day smoker Have you smoked in the past 12 months: Yes Aproximately how many cigarettes per day: 1 Cigars Per Day: 0 Hx Chewing Tobacco Use: No Initiated information on smoking cessation: Yes 'Breaking Loose' booklet given: 07/06/18 - Substance & Tx. History Hx Alcohol Use: Yes Hx Substance Use: Yes Substance Use Type: Alcohol, Prescribed Hx Substance Use Treatment: Yes - Substances abused Alcohol Substance route: Oral Frequency: Daily Amount used: 30 BEERS 160Z Age of first use: 12 Date of last use: 07/06/18 Family Disease History - Family Disease History Family Disease History: Other: Grandparent (GF WAS ETOH DEPENDENT AND ), Mother (HX/O SEIZURE, DM) Admission Physical Exam BHS - Vital Signs Vital Signs: Vital Signs - 24 hr 07/06/18 22:28 Temperature 96.8 F L Pulse Rate 85 Respiratory 18 Rate Blood Pressure 121/87 - Physical General Appearance: Yes: No Apparent Distress, Appropriately Dressed, Disheveled , Alcohol on Breath, Tremorous, Sweating, Anxious HEENTM: Yes: Normocephalic, Normal Voice, IVAN, Pharynx Normal Respiratory: Yes: Chest Non-Tender, Lungs Clear, Normal Breath Sounds, No Respiratory Distress, No Accessory Muscle Use Neck: Yes: No masses,lesions,Nodules, Supple, Trachea in good position Breast: Yes: Breast Exam Deferred, Axillae without masses Cardiology: Yes: Regular Rhythm, S1, S2, Tachycardia Abdominal: Yes: Normal Bowel Sounds, Non Tender, Soft, Protuberent Back: Yes: Normal Inspection Musculoskeletal: Yes: full range of Motion, Muscle Pain, Muscle weakness Extremities: Yes: Normal Capillary Refill, Normal Range of Motion, Non-Tender, Tremors, Swelling Neurological: Yes: Fully Oriented, Alert, Motor Strength 5/5, Depressed Affect Integumentary: Yes: Warm, Erythema, Pitting Edema Lymphatic: Yes: Within Normal Limits - Diagnostic (1) Alcohol dependence with uncomplicated withdrawal Current Visit: No Status: Chronic (2) Anxiety Current Visit: No Status: Chronic (3) Acid reflux Current Visit: No Status: Chronic Qualifiers: Esophagitis presence: without esophagitis Qualified Code(s): K21.9 - Gastro -esophageal reflux disease without esophagitis (4) Bipolar disorder Current Visit: No Status: Chronic Qualifiers: Active/Remission status: currently active Current episode severity: moderate (5) HTN (hypertension) Current Visit: No Status: Chronic Qualifiers: Hypertension type: essential hypertension Qualified Code(s): I10 - Essential (primary) hypertension (6) Hepatitis C Current Visit: No Status: Chronic Qualifiers: Viral hepatitis chronicity: unspecified Hepatic coma status: without hepatic coma Qualified Code(s): B19.20 - Unspecified viral hepatitis C without hepatic coma (7) Methadone maintenance therapy patient Current Visit: No Status: Chronic Comment: Sherron Wen MMTP. Cleared for Admission S - Detox or Rehab [facility] Level of Care: Medically Managed Detox Regimen/Protocol: Librium Inpatient Rehab Admission - Rehab Decision to Admit Inpatient rehab admission?: No
[2018-07-06] MEDS ORDERED: NICOTINE POLACRILEX 2 MG GUM BUC PRN (22:54)
[2018-07-06] MEDS ORDERED: hydrOXYzine PAMOATE 25 MG CAPSULE (FP) PO PRN (22:54)
[2018-07-06] MEDS ORDERED: MENTHOL/PHENOL 1 EACH UD MM PRN (22:54)
[2018-07-06] MEDS ORDERED: MAGNESIUM HYDROX 2400MG/30ML ORAL SUSPENSION 30 ML CUP PO PRN (22:54)
[2018-07-06] MEDS ORDERED: ACETAMINOPHEN 325 MG TABLET (FP) PO PRN ×2 (22:54)
[2018-07-06] MEDS ORDERED: MAG HYDROX/AL HYDROX/SIMETH 30 ML UNIT-DOSE CUP PO PRN (22:54)
[2018-07-06] MEDS ORDERED: MAGNESIUM CITRATE 300 ML BOTTLE PO PRN (22:54)
[2018-07-06] MEDS ORDERED: METHOCARBAMOL 500 MG TABLET PO PRN (22:54)
[2018-07-06] MEDS ORDERED: chlordiazePOXIDE HCL 25 MG CAPSULE PO PRN (22:54)
[2018-07-06] MEDS ORDERED: BISMUTH SUBSALICYLATE 524 MG/30 ML UD PO PRN (22:54)
[2018-07-07] MEDS: chlordiazePOXIDE HCL 25 MG CAPSULE PO SCH ×5 (00:44→22:14)
[2018-07-07] MEDS ORDERED: METHADONE HCL 10 MG TABLET PO SCH (09:15)
[2018-07-07 09:52] LABS: HEMATOCRIT 38.9 % (35.4-49); MCH 32.6 pg (25.7-33.7); MCHC 33.5 g/dl (32.0-35.9); MEAN CELL VOLUME 97.2 fl (80-96); MEAN PLT VOLUME 9.5 fl (7.5-11.1); PLATELET COUNT 115 K/MM3 (134-434); RDW 13.4 % (11.9-15.9); WHITE BLOOD COUNT 2.5 K/mm3 (4.0-10.0)
[2018-07-07] MEDS: PRENATAL VITAMINS W/ FOLIC ACID TABLET (FP) PO SCH (09:56)
[2018-07-07 09:57] LABS: ALBUMIN 4.2 g/dl (3.4-5.0); ALK PHOS 166 U/L (45-117); ANION GAP 10 MMOL/L (8-16); BILIRUBIN,TOTAL 1.2 mg/dL (0.2-1); BLOOD UREA NITROGEN 9 mg/dL (7-18); CALCIUM 9.2 mg/dL (8.5-10.1); CHLORIDE 96 mmol/L (98-107); CO2 30 mmol/L (21-32); CREATININE 0.5 mg/dL (0.55-1.3); GLUCOSE,RANDOM 100 mg/dL (74-106); POTASSIUM 3.6 mmol/L (3.5-5.1); SGOT/AST 172 U/L (15-37); SGPT/ALT 119 U/L (13-61); SODIUM 135 mmol/L (136-145); TOT PROT 9.3 g/dl (6.4-8.2)
[2018-07-07] MEDS ORDERED: METHADONE HCL 10 MG TABLET ONE (09:59)
[2018-07-07] MEDS ORDERED: METHADONE HCL 40 MG DISPERSABLE TABLET ONE (10:00)
[2018-07-07] MEDS: IBUPROFEN 400 MG TABLET (FP) PO PRN (10:00)
[2018-07-07] MEDS: METHADONE 80 MG, METHADONE 20 MG PO SCH (10:05)
--- NOTE | 2018-07-07 10:52 | PN ---
S CIWA - CIWA Score Nausea/Vomitin-Mild Nausea/No Vomiting Muscle Tremors: 4-Moderate,w/Arms Extend Anxiety: 4-Mod. Anxious/Guarded Agitation: 4-Moderately Restless Paroxysmal Sweats: 4-Forehead w/Sweat Beads Orientation: 0-Oriented Tacttile Disturbances: 0-None Auditory Disturbances: 0-None Visual Disturbances: 0-None Headache: 0-None Present CIWA-Ar Total Score: 17 BHS Progress Note (SOAP) Subjective: shakes sweats hot/cold chills body aches agitation anxiety interrupted sleep Objective: 07/07/18 10:42 Vital Signs Temperature 99.1 F 07/07/18 10:24 Pulse Rate 91 H 07/07/18 10:30 Respiratory Rate 18 07/07/18 10:30 Blood Pressure 184/106 H 07/07/18 10:24 O2 Sat by Pulse Oximetry (%) Laboratory Tests 07/07/18 07/07/18 07:00 07:00 WBC 2.5 L RBC 4.00 Hgb 13.0 Hct 38.9 MCV 97.2 H MCH 32.6 MCHC 33.5 RDW 13.4 Plt Count 115 L MPV 9.5 Sodium 135 L Potassium 3.6 Chloride 96 L Carbon Dioxide 30 Anion Gap 10 BUN 9 Creatinine 0.5 L Creat Clearance w eGFR 189.23 Random Glucose 100 Calcium 9.2 Total Bilirubin 1.2 H AST 172 H ALT 119 H Alkaline Phosphatase 166 H Total Protein 9.3 H Albumin 4.2 aaox3 ambulating no acute distress. Assessment: 07/07/18 10:51 withdrawal sx Plan: continue detox increase fluids hypertensive medication reconciled and ordered.
[2018-07-07] MEDS: NIFEdipine E.R 60 MG TABLET (UD) PO SCH (12:23)
[2018-07-07] MEDS: LISINOPRIL 20 MG TABLET (FP) PO SCH ×2 (12:26→22:14)
--- NOTE | 2018-07-07 17:44 | CONSULT ---
[facility] Psychiatric Consult - Data Date of interview: 07/07/18 Admission source: [facility] Identifying data: This is one of multiple admissions to [facility] for this 37 y/ o [place] male self-referred for detoxification (opioid, alcohol). Interviewed on . Patient is single, no dependents, domiciled (lives in a furnished room) and supported on odd jobs. Substance Abuse History: Confirmed by the patient in this session. Details in current [facility] report as follows : Smoking history: Current some day smoker. Have you smoked in the past 12 months: Yes. Aproximately how many cigarettes per day : 1. Cigars Per Day: 0. Hx Chewing Tobacco Use: No. Initiated information on smoking cessation: Yes. 'Breaking Loose' booklet given: 07/06/18. - Substance & Tx. History. Hx Alcohol Use: Yes. Hx Substance Use: Yes. Substance Use Type : Alcohol, Prescribed. Hx Substance Use Treatment: Yes. - Substances abused. Alcohol. Substance route: Oral. Frequency: Daily. Amount used: 30 BEERS 160Z. Age of first use: 12. Date of last use: 07/06/18 Medical History: Medical profile is remarkable for hypertension, withdrawal- related seizures in the past, hepatis C, antecedent of cholecystectomy (2011) and a history of removal of kidney stones. Psychiatric History: Patient denies history of psychiatric hospitalizations, OPD care or suicide attempts. Mr Brown indicates that he experiences chronic anxiety which led him to buy benzodiazepines (xanax + clonazepam) from drug dealers in the streets. Patient is currently on methadone maintenance (110 mg/ day). Physical/Sexual Abuse/Trauma History: Svere stressors : chronic and serious medical illnesses, lack of a support network, financial constraints and addictions. Additional Comment: Toxicology not available. Mental Status Exam - Mental Status Exam Alert and Oriented to: Time, Place, Person Cognitive Function: Grossly Intact Patient Appearance: Unkempt, Disheveled (flushed facial features) Mood: Nervous, Withdrawn, Anxious Affect: Mood Congruent, Constricted Patient Behavior: Fatigued (shaking), Cooperative Speech Pattern: Clear (in congolese), Appropriate Voice Loudness: Normal Thought Process: Goal Oriented Thought Disorder: Not Present Hallucinations: Denies Suicidal Ideation: Denies Homicidal Ideation: Denies Insight/Judgement: Poor Sleep: Poorly, Difficulty falling asleep (requests seroquel) Appetite: Good Muscle strength/Tone: Normal Gait/Station: Normal Psychiatric Findings - Problem List ([place] 1, 2,3) (1) Alcohol dependence with uncomplicated withdrawal Current Visit: Yes Status: Acute (2) Opioid dependence on agonist therapy Current Visit: Yes Status: Chronic (3) Nicotine dependence Current Visit: Yes Status: Chronic Qualifiers: Nicotine product type: cigarettes Substance use status: uncomplicated Qualified Code(s): F17.210 - Nicotine dependence, cigarettes, uncomplicated Comment: Is down to 1-2 cigarettes per day (4) Substance induced mood disorder Current Visit: Yes Status: Chronic (5) Insomnia Current Visit: Yes Status: Chronic - Initial Treatment Plan Initial Treatment Plan: Psychoeducation. Sleep hygiene. Support. Detoxification. AA/NA meetings. Groups. Seroquel 50 mg po hs. Side effects/ benefits discussed with patient. Mr Brown agrees with this plan of care. Observation.
[2018-07-07] MEDS ORDERED: cloNIDine HCL 0.1 MG TABLET PO ONE (20:03)
[2018-07-07] MEDS ORDERED: BACLOFEN 10 MG TABLET (FP) PO PRN (20:04)
--- NOTE | 2018-07-07 20:12 | PN ---
BHS Progress Note Note: Vital Signs Temperature 98.8 F 07/07/18 20:05 Pulse Rate 75 07/07/18 20:05 Respiratory Rate 20 07/07/18 20:05 Blood Pressure 173/109 H 07/07/18 20:05 O2 Sat by Pulse Oximetry (%) elevated BP + tremors withdrawal sx one time order clonidine 0.2 d/c robaxin balcofen TID PRN increase PO fluids repeat v/s in hour continue to monitor
[2018-07-07] MEDS: MELATONIN 5 MG TABLETS PO PRN (22:14)
[2018-07-07] MEDS: THIAMINE HCL 100 MG TABLET (FP) PO SCH (22:14)
[2018-07-08] MEDS ORDERED: METHADONE HCL 10 MG TABLET ONE (05:18)
[2018-07-08] MEDS ORDERED: METHADONE HCL 40 MG DISPERSABLE TABLET ONE (05:19)
[2018-07-08] MEDS: METHADONE 80 MG, METHADONE 20 MG PO SCH (05:59)
[2018-07-08] MEDS: chlordiazePOXIDE HCL 25 MG CAPSULE PO SCH ×3 (05:59→17:16)
[2018-07-08] MEDS: LISINOPRIL 20 MG TABLET (FP) PO SCH ×2 (10:11→21:59)
[2018-07-08] MEDS: PRENATAL VITAMINS W/ FOLIC ACID TABLET (FP) PO SCH (10:11)
[2018-07-08] MEDS: NIFEdipine E.R 60 MG TABLET (UD) PO SCH (10:11)
--- NOTE | 2018-07-08 10:43 | PN ---
S CIWA - CIWA Score Nausea/Vomitin-No Nausea/No Vomiting Muscle Tremors: 4-Moderate,w/Arms Extend Anxiety: 3 Agitation: 3 Paroxysmal Sweats: 3 Orientation: 0-Oriented Tacttile Disturbances: 0-None Auditory Disturbances: 0-None Visual Disturbances: 0-None Headache: 0-None Present CIWA-Ar Total Score: 13 S Progress Note (SOAP) Subjective: sweats shakes interrupted sleep body aches Objective: 07/08/18 10:41 Vital Signs Temperature 97.7 F 07/08/18 09:09 Pulse Rate 73 07/08/18 09:09 Respiratory Rate 16 07/08/18 09:09 Blood Pressure 107/65 07/08/18 09:09 O2 Sat by Pulse Oximetry (%) Laboratory Tests 07/07/18 07/07/18 07/07/18 07:00 07:00 07:00 WBC 2.5 L RBC 4.00 Hgb 13.0 Hct 38.9 MCV 97.2 H MCH 32.6 MCHC 33.5 RDW 13.4 Plt Count 115 L MPV 9.5 Sodium 135 L Potassium 3.6 Chloride 96 L Carbon Dioxide 30 Anion Gap 10 BUN 9 Creatinine 0.5 L Creat Clearance w eGFR 189.23 Random Glucose 100 Calcium 9.2 Total Bilirubin 1.2 H AST 172 H ALT 119 H Alkaline Phosphatase 166 H Total Protein 9.3 H Albumin 4.2 RPR Titer Nonreactive labs elevated ast/alt elevated; repeat labs d/c tylenol aaox3 ambulating no acute distress Assessment: 07/08/18 10:42 withdrawal sx Plan: continue detox increase fluids
[2018-07-08] MEDS: chlordiazePOXIDE HCL 10 MG CAPSULE PO SCH (21:59)
[2018-07-08] MEDS: MELATONIN 5 MG TABLETS PO PRN (21:59)
[2018-07-08] MEDS: THIAMINE HCL 100 MG TABLET (FP) PO SCH (21:59)
[2018-07-08] MEDS ORDERED: chlordiazePOXIDE HCL 10 MG CAPSULE PO PRN (23:00)
[2018-07-09] MEDS ORDERED: METHADONE HCL 10 MG TABLET ONE (04:50)
[2018-07-09] MEDS ORDERED: METHADONE HCL 40 MG DISPERSABLE TABLET ONE (04:51)
[2018-07-09] MEDS: chlordiazePOXIDE HCL 10 MG CAPSULE PO SCH ×3 (05:58→17:41)
[2018-07-09] MEDS: METHADONE 80 MG, METHADONE 20 MG PO SCH (05:58)
--- NOTE | 2018-07-09 09:51 | PN ---
S CIWA - CIWA Score Nausea/Vomitin-No Nausea/No Vomiting Muscle Tremors: 3 Anxiety: 2 Agitation: 2 Paroxysmal Sweats: 2 Orientation: 0-Oriented Tacttile Disturbances: 0-None Auditory Disturbances: 0-None Visual Disturbances: 0-None Headache: 0-None Present CIWA-Ar Total Score: 9 BHS Progress Note (SOAP) Subjective: shakes anxiety Objective: 07/09/18 09:50 Vital Signs Temperature 98.2 F 07/09/18 06:28 Pulse Rate 68 07/09/18 06:28 Respiratory Rate 18 07/09/18 06:28 Blood Pressure 143/91 07/09/18 06:28 O2 Sat by Pulse Oximetry (%) aaox3 ambulating no acute distress Assessment: 07/09/18 09:51 mild withdrawal sx Plan: continue detox increase fluids d/c in am
[2018-07-09] MEDS: LISINOPRIL 20 MG TABLET (FP) PO SCH ×2 (10:19→21:58)
[2018-07-09] MEDS: NIFEdipine E.R 60 MG TABLET (UD) PO SCH (10:19)
[2018-07-09] MEDS: PRENATAL VITAMINS W/ FOLIC ACID TABLET (FP) PO SCH (10:19)
[2018-07-09] MEDS: MELATONIN 5 MG TABLETS PO PRN (21:58)
[2018-07-09] MEDS: THIAMINE HCL 100 MG TABLET (FP) PO SCH (21:59)
[2018-07-09] MEDS ORDERED: chlordiazePOXIDE HCL 10 MG CAPSULE PO SCH (23:00)
[2018-07-09] MEDS: IBUPROFEN 400 MG TABLET (FP) PO PRN (23:20)
[2018-07-10] MEDS ORDERED: METHADONE HCL 10 MG TABLET ONE (04:40)
[2018-07-10] MEDS ORDERED: METHADONE HCL 40 MG DISPERSABLE TABLET ONE (04:40)
[2018-07-10] MEDS: METHADONE 80 MG, METHADONE 20 MG PO SCH (05:41)
[2018-07-10 06:49] VITALS: BP 128/75; PULSE 72; TEMP 98.1
--- NOTE | 2018-07-10 18:45 | DS ---
[facility] Detox Discharge Summary Admission Date: 07/06/18 Discharge Date: 07/10/18 - History Present History: Alcohol Dependence, Opioid Dependence, MMTP Additional Comments: PATIENT GOING TO [facility] ([place], [place]) FOR AFTERCARE. PATIENT WAS DISCHARGED FORM DETOX UNIT IN STABLE MEDICAL CONDITION. Pertinent Past History: HTN, History Of Seizures (Due to Withdrawal), Hep C, Bipolar Disorder, Anxiety, Acid Reflux, M.M.T.P., Insomnia, Nicotine Dependence. - Physical Exam Results Vital Signs: Vital Signs Temperature 98.1 F 07/10/18 06:49 Pulse Rate 72 07/10/18 06:49 Respiratory Rate 18 07/10/18 06:49 Blood Pressure 128/75 07/10/18 06:49 O2 Sat by Pulse Oximetry (%) Pertinent Admission Physical Exam Findings: WITHDRAWAL SYMPTOMS. Laboratory Tests 07/07/18 07/07/18 07/07/18 07:00 07:00 07:00 WBC 2.5 L RBC 4.00 Hgb 13.0 Hct 38.9 MCV 97.2 H MCH 32.6 MCHC 33.5 RDW 13.4 Plt Count 115 L MPV 9.5 Sodium 135 L Potassium 3.6 Chloride 96 L Carbon Dioxide 30 Anion Gap 10 BUN 9 Creatinine 0.5 L Creat Clearance w eGFR 189.23 Random Glucose 100 Calcium 9.2 Total Bilirubin 1.2 H AST 172 H ALT 119 H Alkaline Phosphatase 166 H Total Protein 9.3 H Albumin 4.2 RPR Titer Nonreactive LABS NOTED. - Treatment Hospital Course: Detox Protocol Followed, Detoxed Safely, Responded well, Discharged Condition Good, Rehab Referral Accepted Patient has Accepted a Rehab Referral to: [facility] ([place], [place]). - Medication Discharge Medications: Ambulatory Orders Lisinopril [Prinivil] 20 mg PO BID 04/01/18 Nifedipine [Nifedipine ER] 60 mg PO DAILY 04/01/18 - Diagnosis (1) Alcohol dependence with uncomplicated withdrawal Status: Acute (2) Acid reflux Status: Chronic Qualifiers: Esophagitis presence: without esophagitis Qualified Code(s): K21.9 - Gastro -esophageal reflux disease without esophagitis (3) Anxiety Status: Chronic (4) Bipolar disorder Status: Chronic Qualifiers: Active/Remission status: remission status unspecified Qualified Code(s): F31.9 - Bipolar disorder, unspecified (5) HTN (hypertension) Status: Chronic Qualifiers: Hypertension type: essential hypertension Qualified Code(s): I10 - Essential (primary) hypertension (6) Hepatitis C Status: Chronic Qualifiers: Viral hepatitis chronicity: unspecified Hepatic coma status: without hepatic coma Qualified Code(s): B19.20 - Unspecified viral hepatitis C without hepatic coma (7) Methadone maintenance therapy patient Status: Chronic (8) Insomnia Status: Chronic Qualifiers: Insomnia type: unspecified Qualified Code(s): G47.00 - Insomnia, unspecified (9) Nicotine dependence Status: Chronic Qualifiers: Nicotine product type: cigarettes Substance use status: uncomplicated Qualified Code(s): F17.210 - Nicotine dependence, cigarettes, uncomplicated (10) Substance induced mood disorder Status: Chronic - AMA Did Patient Leave Against Medical Advice: No
== END 2018-07-10 08:54 | disposition home or self-care (01) | DRG 773 ==
LOC: YASAS 18:57 → Y6N 23:31
PROVIDERS: ADMIT Surgery; ATTEND Surgery
PROC: HZ2ZZZZ Detoxification Services for Substance Abuse Treatment (ICD-10-PCS; principal; 2018-07-06)
DX: F10.230 Alcohol dependence with withdrawal, uncomplicated (principal); F11.20 Opioid dependence, uncomplicated; F17.210 Nicotine dependence, cigarettes, uncomplicated; F19.24 Other psychoactive substance dependence with psychoactive substance-induced mood disorder; F31.9 Bipolar disorder, unspecified; F41.9 Anxiety disorder, unspecified; G47.00 Insomnia, unspecified; I10 Essential (primary) hypertension; K21.9 Gastro-esophageal reflux disease without esophagitis; R94.5 Abnormal results of liver function studies; B18.2 Chronic viral hepatitis C; Z86.69 Personal history of other diseases of the nervous system and sense organs
CPT/HCPCS: 36415; 80053; 85027; 86593; J0475; J0735